=== PATIENT | female | born 1955 | race Caucasian/White ===

== ENCOUNTER 2021-03-20 12:39 | Outpatient (CLI) | payer MEDICARE | END 2021-03-20 12:40 | disposition home or self-care (01) | LOC: CSHCT 12:39 | PROVIDERS: ATTEND Internal Medicine Critical Care Medicine | DX: R91.1 Solitary pulmonary nodule (principal); R59.0 Localized enlarged lymph nodes | CPT/HCPCS: 71260; 82565 ==

== ENCOUNTER 2021-05-18 22:57 | Inpatient (IN) | payer MEDICARE ==
[2021-05-18 23:21] LABS: Hemoglobin 11.9 g/dL (12.0-15.5); Mean Corpuscular HGB CONC 30.2 g/dL (32.0-36.0); Mean Corpuscular Hemoglobin 28.7 pg (27.0-33.0); Mean Corpuscular Volume 95.2 fl (81.6-98.3); Mean Platelet Volume 11.1 fl (7.4-10.4); Platelet Count 162 10x3/uL (150-450); Red Blood Cell (RBC) Count 4.14 10x6/uL (3.90-5.03); White Blood Cell (WBC) Count 5.9 10x3/uL (3.5-10.5)
[2021-05-18 23:24] LABS: MDiff Complete? YES; Manual Diff?? YES
[2021-05-18] MEDS ORDERED: cefTRIAXone\\ROCEPHIN 1 GM VIAL ONE (23:24)
[2021-05-18 23:33] LABS: ALT (SGPT) 18 U/L (8-55); AST (SGOT) 27 U/L (5-34); Albumin 3.3 g/dL (3.4-4.8); Alkaline Phosphatase 39 U/L (40-110); Anion Gap 13 mmol/L (10-20); BUN (Urea Nitrogen) 21 mg/dL (9.8-20.1); Bilirubin, Total 0.6 mg/dL (0.2-1.2); Calc. Creatinine Clearance 0 mL/min (70-130); Calcium 7.4 mg/dL (7.8-10.44); Carbon Dioxide 28 mmol/L (23-31); Chloride 101 mmol/L (98-107); Globulin 2.5 g/dL (2.4-3.5); Glucose 116 mg/dL (80-115); Potassium 4.3 mmol/L (3.5-5.1); Protein, Total 5.8 g/dL (5.8-8.1); Sodium 138 mmol/L (136-145)
[2021-05-18 23:54] LABS: Band 7 % (5-11); Lymphocytes 15 % (21-51); Monocytes 7 % (0-10); Neutrophil 65 % (42-75); Reactive Lymphocytes 5 % (0-10)
[2021-05-18 23:55] LABS: Anisocytosis SLIGHT = 6-15 cells (100X) (0-5/hpf); Platelet Morphology Comment Appears Adequate
[2021-05-18 23:56] LABS: Elliptocytes SLIGHT = 2-5 cells (100X) (0-1/hpf)
[2021-05-19 00:26] LABS: SARS-CoV-2 NAA Rapid Test DETECTED (NotDetected)
[2021-05-19] MEDS ORDERED: Azithromycin 500 MG VIAL ONE (00:34)
[2021-05-19] MEDS ORDERED: Dexamethasone 10 MG/ML VIAL ONE (00:34)
[2021-05-19] MEDS ORDERED: Rocuronium Bromide 10 MG/ML (10ML VIAL) ONE (01:36)
[2021-05-19] MEDS ORDERED: Propofol 1,000 MG/100 ML VIAL IV ONE ×2 (01:51→03:24)
[2021-05-19] MEDS ORDERED: Midazolam HCl 2 mg/2 ml Vial ONE (02:29)
[2021-05-19 03:37] LABS: Troponin I Less than 0.010 ng/mL (< 0.028)
[2021-05-19 03:46] LABS: ALV-art Gradient 572.325 mmHg (0-20); Actual Bicarbonate (HCO3a) 25.3 mEq/L (22-28); Base Excess (BEa) -2.4 mEq/L (-2.0 to +3.0); CO2 Tension 55.9 mmHg (35.0-45.0); Calcium, Ionized (arterial) 1.05 mmol/L (1.12-1.30); Carboxyhemoglobin (COHb) 0.5 gm% (0.0-3.0); Hemoglobin (Hb) 13.5 g/dL (12.0-16.0); O2 Tension (PaO2), arterial 70.8 mmHg (> 80.0); Potassium - ABG Lab 4.8 mmol/L (3.70-5.30); Puncture Site RRA; pH, Arterial 7.27 (7.35-7.45)
[2021-05-19] MEDS ORDERED: Furosemide 40 MG/4 ML VIAL SLOW IVP SCH (05:00)
[2021-05-19] MEDS ORDERED: Fentanyl 100 MCG/2 ML VIAL SLOW IVP PRN (05:26)
[2021-05-19] MEDS ORDERED: Lorazepam 2 MG/ML VIAL SLOW IVP PRN (05:30)
[2021-05-19] MEDS ORDERED: Morphine 2 MG/ML VIAL SLOW IVP PRN (05:30)
[2021-05-19] MEDS ORDERED: DISCONTINUE PREVIOUS NARCOTIC PAIN MEDICATIONS AND BENZODIAZEPINES FS SCH (05:30)
[2021-05-19] MEDS ORDERED: Fentanyl BOLUS 250 ML IVPB PRN (05:30)
[2021-05-19 06:14] LABS: #Monocytes 0.2 10x3/uL (0.0-1.1); #Neutrophils 3.1 10x3/uL (1.5-8.4); %Basophils 0.3 % (0.0-2.0); %Lymphocytes 12.4 % (18.0-47.0); %Monocytes 4.3 % (0.0-10.0); %Neutrophils 82.7 % (40.0-75.0); Hemoglobin 11.9 g/dL (12.0-15.5); Mean Corpuscular HGB CONC 30.4 g/dL (32.0-36.0); Mean Corpuscular Hemoglobin 28.6 pg (27.0-33.0); Mean Platelet Volume 10.9 fl (7.4-10.4); Platelet Count 148 10x3/uL (150-450); RBC Distribution Width 14.9 % (11.5-14.5); Red Blood Cell (RBC) Count 4.16 10x6/uL (3.90-5.03); White Blood Cell (WBC) Count 3.7 10x3/uL (3.5-10.5)
[2021-05-19 06:18] LABS: Anion Gap 16 mmol/L (10-20); BUN (Urea Nitrogen) 22 mg/dL (9.8-20.1); Calc. Creatinine Clearance 78 mL/min (70-130); Calcium 7.7 mg/dL (7.8-10.44); Carbon Dioxide 21 mmol/L (23-31); Chloride 105 mmol/L (98-107); Glucose 141 mg/dL (80-115); Potassium 5.4 mmol/L (3.5-5.1); Sodium 137 mmol/L (136-145)
[2021-05-19 06:24] LABS: Troponin I Less than 0.010 ng/mL (< 0.028)
[2021-05-19 07:20] LABS: CO2 Tension 45.8 mmHg (35.0-45.0); Calcium, Ionized (arterial) 1.07 mmol/L (1.12-1.30); Hemoglobin (Hb) 13.4 g/dL (12.0-16.0); O2 Tension (PaO2), arterial 82.6 mmHg (> 80.0); Potassium - ABG Lab 5.2 mmol/L (3.70-5.30); Puncture Site LRA; pH, Arterial 7.34 (7.35-7.45)
[2021-05-19] MEDS: Pantoprazole 40 MG VIAL IVP SCH (07:45)
[2021-05-19] MEDS: Albuterol Sulfate 2.5 mg/3 ml Neb NEB SCH ×3 (08:26→21:13)
[2021-05-19] MEDS: Budesonide 0.5 MG/2 ML NEB NEB SCH ×2 (08:28→21:13)
[2021-05-19] MEDS ORDERED: Enoxaparin Sodium 40 MG/0.4 ML SYRINGE SC SCH (09:00)
[2021-05-19] MEDS ORDERED: Dexamethasone 4 mg/ml Vial SLOW IVP SCH (09:00)
[2021-05-19] MEDS ORDERED: Enoxaparin Sodium 80 MG/0.8 ML SYRINGE SC SCH (10:45)
[2021-05-19] MEDS: methylPREDNISolone Sod Succ/PF 125 MG/2 ML VIAL IVP SCH ×2 (10:55→21:53)
[2021-05-19] MEDS: Propofol 1,000 MG/100 ML VIAL IV PRN ×3 (10:56→19:38)
[2021-05-19] MEDS: Propofol BOLUS 1,000 MG/100 ML VIAL IV PRN ×2 (12:00→19:38)
[2021-05-19] MEDS ORDERED: Vecuronium 10 MG VIAL ONE (12:10)
[2021-05-19 13:03] LABS: Actual Bicarbonate (HCO3a) 20.9 mEq/L (22-28); Base Excess (BEa) -5.9 mEq/L (-2.0 to +3.0); CO2 Tension 45.7 mmHg (35.0-45.0); Calcium, Ionized (arterial) 1.07 mmol/L (1.12-1.30); Carboxyhemoglobin (COHb) 0.3 gm% (0.0-3.0); Hemoglobin (Hb) 13.8 g/dL (12.0-16.0); O2 Tension (PaO2), arterial 319.8 mmHg (> 80.0); Potassium - ABG Lab 4.1 mmol/L (3.70-5.30); Puncture Site LRA; pH, Arterial 7.28 (7.35-7.45)
[2021-05-19 13:04] LABS: ALV-art Gradient 336.075 mmHg (0-20)
[2021-05-19] MEDS ORDERED: Vecuronium 10 MG VIAL IVP SCH (13:30)
[2021-05-19] MEDS ORDERED: Tocilizumab 800 MG in Sodium Chloride 0.9% 100 ML IV SCH (15:00)
[2021-05-19 16:34] LABS: Anion Gap 20 mmol/L (10-20); BUN (Urea Nitrogen) 28 mg/dL (9.8-20.1); Calc. Creatinine Clearance 64 mL/min (70-130); Calcium 8.2 mg/dL (7.8-10.44); Carbon Dioxide 21 mmol/L (23-31); Chloride 101 mmol/L (98-107); Glucose 221 mg/dL (80-115); Potassium 4.4 mmol/L (3.5-5.1); Sodium 138 mmol/L (136-145)
[2021-05-19] MEDS: fentaNYL Citrate-0.9 % NaCl/PF 100 ML IVPB SCH (18:14)
[2021-05-19] MEDS ORDERED: FLU VACC QS2021-22(6MOS UP)/PF 60 MCG/0.5 ML SYRINGE IM ONE (21:15)
[2021-05-19] MEDS: Enoxaparin Sodium 120 MG/0.8 ML SYRINGE SC SCH (21:53)
[2021-05-20] MEDS: cefTRIAXone\\ROCEPHIN 2 GM in Sodium Chloride 0.9% 100 ML IVPB SCH (00:05)
[2021-05-20] MEDS: Propofol BOLUS 1,000 MG/100 ML VIAL IV PRN ×2 (00:40→04:00)
[2021-05-20] MEDS: Propofol 1,000 MG/100 ML VIAL IV PRN ×6 (00:40→21:42)
[2021-05-20] MEDS: Azithromycin 500 MG in Sodium Chloride 0.9% 250 ML 250 ML IVPB SCH (01:37)
[2021-05-20] MEDS: Albuterol Sulfate 2.5 mg/3 ml Neb NEB SCH ×4 (03:13→19:08)
[2021-05-20 04:08] LABS: ALT (SGPT) 23 U/L (8-55); AST (SGOT) 67 U/L (5-34); Albumin 3.2 g/dL (3.4-4.8); Alkaline Phosphatase 38 U/L (40-110); Anion Gap 16 mmol/L (10-20); BUN (Urea Nitrogen) 34 mg/dL (9.8-20.1); Bilirubin, Total 0.3 mg/dL (0.2-1.2); Calc. Creatinine Clearance 61 mL/min (70-130); Calcium 8.2 mg/dL (7.8-10.44); Carbon Dioxide 21 mmol/L (23-31); Chloride 103 mmol/L (98-107); Globulin 3.2 g/dL (2.4-3.5); Glucose 201 mg/dL (80-115); Potassium 4.1 mmol/L (3.5-5.1); Protein, Total 6.4 g/dL (5.8-8.1); Sodium 136 mmol/L (136-145)
[2021-05-20 06:10] LABS: #Monocytes 0.5 10x3/uL (0.0-1.1); #Neutrophils 4.5 10x3/uL (1.5-8.4); %Basophils 0.2 % (0.0-2.0); %Lymphocytes 11.5 % (18.0-47.0); %Monocytes 9.2 % (0.0-10.0); %Neutrophils 78.7 % (40.0-75.0); Hemoglobin 13.3 g/dL (12.0-15.5); Mean Corpuscular HGB CONC 31.9 g/dL (32.0-36.0); Mean Corpuscular Hemoglobin 28.6 pg (27.0-33.0); Mean Corpuscular Volume 89.7 fl (81.6-98.3); Mean Platelet Volume 10.9 fl (7.4-10.4); Platelet Count 172 10x3/uL (150-450); RBC Distribution Width 14.5 % (11.5-14.5); Red Blood Cell (RBC) Count 4.65 10x6/uL (3.90-5.03); White Blood Cell (WBC) Count 5.7 10x3/uL (3.5-10.5)
[2021-05-20] MEDS: Budesonide 0.5 MG/2 ML NEB NEB SCH ×2 (08:00→19:08)
[2021-05-20 08:04] LABS: Actual Bicarbonate (HCO3a) 21.8 mEq/L (22-28); Base Excess (BEa) -2.2 mEq/L (-2.0 to +3.0); Calcium, Ionized (arterial) 1.08 mmol/L (1.12-1.30); Carboxyhemoglobin (COHb) 0.3 gm% (0.0-3.0); Hemoglobin (Hb) 13.5 g/dL (12.0-16.0); O2 Tension (PaO2), arterial 72.1 mmHg (> 80.0); Potassium - ABG Lab 3.7 mmol/L (3.70-5.30); Puncture Site LRA; pH, Arterial 7.41 (7.35-7.45)
[2021-05-20] MEDS ORDERED: Enoxaparin Sodium 120 MG/0.8 ML SYRINGE SC ONE (08:14)
[2021-05-20] MEDS: Pantoprazole 40 MG VIAL IVP SCH (08:29)
[2021-05-20] MEDS: Enoxaparin Sodium 120 MG/0.8 ML SYRINGE SC SCH ×2 (08:30→21:16)
[2021-05-20] MEDS: methylPREDNISolone Sod Succ/PF 125 MG/2 ML VIAL IVP SCH ×2 (09:38→21:20)
[2021-05-20] MEDS: Norepinephrine 8 MG/0.9% NS 250 ML ONE ×2 (09:57→11:55)
[2021-05-20] MEDS: Norepinephrine 8 MG/0.9% NS 250 ML IVPB SCH (09:57)
[2021-05-20] MEDS ORDERED: Sodium Chloride 0.9% 250 ML 250 ML IVPB SCH (10:45)
[2021-05-20] MEDS ORDERED: Lactated Ringer's 1,000 ML IV SCH (10:45)
[2021-05-20] MEDS ORDERED: Artificial Tear Sol 15 ML BOT EA EYE PRN (12:06)
[2021-05-20] MEDS ORDERED: Loperamide HCl 2 MG CAP PO PRN (12:06)
[2021-05-20] MEDS ORDERED: Acetaminophen 650 MG Suppository PR PRN (12:06)
[2021-05-20] MEDS ORDERED: Hydrocerin (Eucerin) Cream 120 gm Jar TOP PRN (12:06)
[2021-05-20] MEDS ORDERED: GUAIFENESIN SF SOLN 200 MG/10 ML UDCUP PO PRN (12:06)
[2021-05-20] MEDS ORDERED: Bisacodyl 5 MG TAB PO PRN (12:06)
[2021-05-20] MEDS ORDERED: Ondansetron PF 4 MG/2 ML Vial IVP PRN (12:06)
[2021-05-20] MEDS ORDERED: Loratadine 10 MG TAB PO PRN (12:06)
[2021-05-20] MEDS: fentaNYL Citrate-0.9 % NaCl/PF 100 ML IVPB SCH (13:53)
[2021-05-20] MEDS ORDERED: Vecuronium Bromide 20 MG VIAL IV PRN (16:15)
[2021-05-20] MEDS: Vecuronium 10 MG VIAL IV PRN ×2 (17:07→21:15)
[2021-05-21] MEDS ORDERED: Azithromycin 500 MG VIAL ONE (00:02)
[2021-05-21] MEDS: cefTRIAXone\\ROCEPHIN 2 GM in Sodium Chloride 0.9% 100 ML IVPB SCH ×2 (00:20→23:51)
[2021-05-21] MEDS: Azithromycin 500 MG in Sodium Chloride 0.9% 250 ML 250 ML IVPB SCH (01:00)
[2021-05-21] MEDS: Propofol 1,000 MG/100 ML VIAL IV PRN ×5 (01:48→20:21)
[2021-05-21] MEDS: Albuterol Sulfate 2.5 mg/3 ml Neb NEB SCH ×4 (01:55→20:39)
[2021-05-21] MEDS: Vecuronium 10 MG VIAL IV PRN ×3 (02:36→16:10)
[2021-05-21 05:22] LABS: #Basophils 0.1 10x3/uL (0.0-0.2); #Neutrophils 16.6 10x3/uL (1.5-8.4); %Basophils 0.3 % (0.0-2.0); %Monocytes 5.1 % (0.0-10.0); %Neutrophils 89.1 % (40.0-75.0); Hemoglobin 13.7 g/dL (12.0-15.5); Mean Corpuscular HGB CONC 32.9 g/dL (32.0-36.0); Mean Corpuscular Hemoglobin 29.3 pg (27.0-33.0); Mean Corpuscular Volume 89.1 fl (81.6-98.3); Mean Platelet Volume 12.3 fl (7.4-10.4); Platelet Count 227 10x3/uL (150-450); RBC Distribution Width 14.9 % (11.5-14.5); Red Blood Cell (RBC) Count 4.68 10x6/uL (3.90-5.03); White Blood Cell (WBC) Count 18.7 10x3/uL (3.5-10.5)
[2021-05-21 07:10] LABS: ALT (SGPT) 26 U/L (8-55); AST (SGOT) 63 U/L (5-34); Albumin 3.3 g/dL (3.4-4.8); Alkaline Phosphatase 44 U/L (40-110); Anion Gap 18 mmol/L (10-20); BUN (Urea Nitrogen) 43 mg/dL (9.8-20.1); Bilirubin, Total 0.3 mg/dL (0.2-1.2); Calc. Creatinine Clearance 46 mL/min (70-130); Carbon Dioxide 20 mmol/L (23-31); Chloride 102 mmol/L (98-107); Glucose 226 mg/dL (80-115); Potassium 4.1 mmol/L (3.5-5.1); Protein, Total 6.3 g/dL (5.8-8.1); Sodium 136 mmol/L (136-145)
[2021-05-21] MEDS: Budesonide 0.5 MG/2 ML NEB NEB SCH ×2 (07:10→20:39)
[2021-05-21] MEDS: methylPREDNISolone Sod Succ/PF 125 MG/2 ML VIAL IVP SCH ×2 (08:49→20:21)
[2021-05-21] MEDS: Pantoprazole 40 MG VIAL IVP SCH (08:50)
[2021-05-21] MEDS: Norepinephrine 8 MG/0.9% NS 250 ML IVPB SCH (08:50)
[2021-05-21] MEDS ORDERED: Enoxaparin Sodium 120 MG/0.8 ML SYRINGE SC SCH (09:00)
[2021-05-21] MEDS: fentaNYL Citrate-0.9 % NaCl/PF 100 ML IVPB SCH ×2 (10:09→23:21)
[2021-05-21 10:35] LABS: Base Excess (BEa) -1.4 mEq/L (-2.0 to +3.0); CO2 Tension 37.4 mmHg (35.0-45.0); Calcium, Ionized (arterial) 1.06 mmol/L (1.12-1.30); Carboxyhemoglobin (COHb) 0.3 gm% (0.0-3.0); Hemoglobin (Hb) 13.6 g/dL (12.0-16.0); O2 Tension (PaO2), arterial 157.2 mmHg (> 80.0); Potassium - ABG Lab 4.3 mmol/L (3.70-5.30); Puncture Site LRA; pH, Arterial 7.41 (7.35-7.45)
[2021-05-21] MEDS: Sodium Chloride 0.9% 1,000 ML IV SCH (13:39)
[2021-05-21] MEDS: Atorvastatin Calcium 40 MG TAB PO SCH (20:21)
[2021-05-22] MEDS: Propofol 1,000 MG/100 ML VIAL IV PRN ×5 (00:49→17:48)
[2021-05-22] MEDS: Azithromycin 500 MG in Sodium Chloride 0.9% 250 ML 250 ML IVPB SCH (01:00)
[2021-05-22] MEDS: Albuterol Sulfate 2.5 mg/3 ml Neb NEB SCH ×2 (01:25→09:44)
[2021-05-22] MEDS: Sodium Chloride 0.9% 1,000 ML IV SCH ×2 (02:30→17:48)
[2021-05-22 04:03] LABS: #Monocytes 0.7 10x3/uL (0.0-1.1); #Neutrophils 15.4 10x3/uL (1.5-8.4); %Basophils 0.1 % (0.0-2.0); %Lymphocytes 3.8 % (18.0-47.0); %Monocytes 4.4 % (0.0-10.0); %Neutrophils 90.6 % (40.0-75.0); Hemoglobin 11.4 g/dL (12.0-15.5); Mean Corpuscular HGB CONC 31.6 g/dL (32.0-36.0); Mean Corpuscular Hemoglobin 28.7 pg (27.0-33.0); Mean Corpuscular Volume 90.9 fl (81.6-98.3); Mean Platelet Volume 11.6 fl (7.4-10.4); Platelet Count 237 10x3/uL (150-450); RBC Distribution Width 15.3 % (11.5-14.5); Red Blood Cell (RBC) Count 3.97 10x6/uL (3.90-5.03)
[2021-05-22 04:16] LABS: CRP (Inflammatory) 1.37 mg/dL (= or < 0.5); Phosphorus 5.3 mg/dL (2.3-4.7)
[2021-05-22 04:17] LABS: Anion Gap 14 mmol/L (10-20); BUN (Urea Nitrogen) 53 mg/dL (9.8-20.1); Calc. Creatinine Clearance 46 mL/min (70-130); Calcium 7.6 mg/dL (7.8-10.44); Carbon Dioxide 23 mmol/L (23-31); Chloride 103 mmol/L (98-107); Glucose 210 mg/dL (80-115); Magnesium 2.1 mg/dL (1.6-2.6); Potassium 4.9 mmol/L (3.5-5.1); Sodium 135 mmol/L (136-145)
[2021-05-22] MEDS: Levothyroxine Sodium 50 MCG TAB PO SCH (05:46)
[2021-05-22] MEDS ORDERED: Furosemide 40 MG/4 ML VIAL SLOW IVP SCH (07:45)
[2021-05-22] MEDS: Pantoprazole 40 MG VIAL IVP SCH (08:30)
[2021-05-22] MEDS: Enoxaparin Sodium 40 MG/0.4 ML SYRINGE SC SCH ×2 (08:30→20:24)
[2021-05-22] MEDS: methylPREDNISolone Sod Succ/PF 125 MG/2 ML VIAL IVP SCH ×2 (08:30→20:24)
[2021-05-22] MEDS: Aspirin 81 mg Enteric Coated Tablet PO SCH (08:30)
[2021-05-22 08:38] LABS: Actual Bicarbonate (HCO3a) 21.7 mEq/L (22-28); Base Excess (BEa) -2.9 mEq/L (-2.0 to +3.0); CO2 Tension 37.1 mmHg (35.0-45.0); Calcium, Ionized (arterial) 1.02 mmol/L (1.12-1.30); Carboxyhemoglobin (COHb) 0.3 gm% (0.0-3.0); Hemoglobin (Hb) 11.9 g/dL (12.0-16.0); O2 Tension (PaO2), arterial 134.2 mmHg (> 80.0); Potassium - ABG Lab 5.5 mmol/L (3.70-5.30); Puncture Site LRA; pH, Arterial 7.39 (7.35-7.45)
[2021-05-22 08:43] LABS: ALV-art Gradient 175.925 mmHg (0-20)
[2021-05-22] MEDS: Budesonide 0.5 MG/2 ML NEB NEB SCH ×2 (09:19→19:15)
[2021-05-22] MEDS: fentaNYL Citrate-0.9 % NaCl/PF 100 ML IVPB SCH ×2 (10:47→23:08)
[2021-05-22] MEDS: Atorvastatin Calcium 40 MG TAB PO SCH (20:24)
[2021-05-22] MEDS: Norepinephrine 8 MG/0.9% NS 250 ML IVPB SCH (23:08)
[2021-05-23] MEDS: cefTRIAXone\\ROCEPHIN 2 GM in Sodium Chloride 0.9% 100 ML IVPB SCH ×2 (01:08→23:36)
[2021-05-23] MEDS: Azithromycin 500 MG in Sodium Chloride 0.9% 250 ML 250 ML IVPB SCH (01:08)
[2021-05-23] MEDS: Propofol 1,000 MG/100 ML VIAL IV PRN ×4 (03:09→20:13)
[2021-05-23 03:42] LABS: #Basophils 0.1 10x3/uL (0.0-0.2); #Neutrophils 15.1 10x3/uL (1.5-8.4); %Basophils 0.3 % (0.0-2.0); %Lymphocytes 5.8 % (18.0-47.0); %Monocytes 5.4 % (0.0-10.0); %Neutrophils 86.4 % (40.0-75.0); Mean Corpuscular HGB CONC 31.6 g/dL (32.0-36.0); Mean Corpuscular Hemoglobin 29.2 pg (27.0-33.0); Mean Corpuscular Volume 92.3 fl (81.6-98.3); Mean Platelet Volume 11.6 fl (7.4-10.4); Platelet Count 223 10x3/uL (150-450); RBC Distribution Width 15.7 % (11.5-14.5); Red Blood Cell (RBC) Count 3.77 10x6/uL (3.90-5.03); White Blood Cell (WBC) Count 17.5 10x3/uL (3.5-10.5)
[2021-05-23 03:52] LABS: Anion Gap 16 mmol/L (10-20); BUN (Urea Nitrogen) 63 mg/dL (9.8-20.1); Calc. Creatinine Clearance 52 mL/min (70-130); Calcium 7.3 mg/dL (7.8-10.44); Carbon Dioxide 21 mmol/L (23-31); Chloride 108 mmol/L (98-107); Glucose 214 mg/dL (80-115); Potassium 5.6 mmol/L (3.5-5.1); Sodium 139 mmol/L (136-145)
[2021-05-23 04:21] LABS: Actual Bicarbonate (HCO3a) 23.7 mEq/L (22-28); Base Excess (BEa) -2.6 mEq/L (-2.0 to +3.0); CO2 Tension 47.2 mmHg (35.0-45.0); Calcium, Ionized (arterial) 1.04 mmol/L (1.12-1.30); Carboxyhemoglobin (COHb) 0.3 gm% (0.0-3.0); O2 Tension (PaO2), arterial 54.4 mmHg (> 80.0); Potassium - ABG Lab 5.3 mmol/L (3.70-5.30); Puncture Site LRA; pH, Arterial 7.32 (7.35-7.45)
[2021-05-23] MEDS: Budesonide 0.5 MG/2 ML NEB NEB SCH ×2 (07:06→19:25)
[2021-05-23] MEDS: Levothyroxine Sodium 50 MCG TAB PO SCH (07:50)
[2021-05-23] MEDS: Sodium Chloride 0.9% 1,000 ML IV SCH ×2 (07:50→18:12)
[2021-05-23] MEDS: Aspirin 81 mg Enteric Coated Tablet PO SCH (07:51)
[2021-05-23] MEDS: Pantoprazole 40 MG VIAL IVP SCH (07:54)
[2021-05-23] MEDS: Enoxaparin Sodium 40 MG/0.4 ML SYRINGE SC SCH ×2 (07:54→20:09)
[2021-05-23] MEDS: methylPREDNISolone Sod Succ 40 MG VIAL IVP SCH ×2 (07:55→20:09)
[2021-05-23] MEDS: fentaNYL Citrate-0.9 % NaCl/PF 100 ML IVPB SCH (15:28)
[2021-05-23 15:52] LABS: Potassium 5.6 mmol/L (3.5-5.1)
[2021-05-23] MEDS: Atorvastatin Calcium 40 MG TAB PO SCH (20:09)
[2021-05-24] MEDS: Propofol 1,000 MG/100 ML VIAL IV PRN ×5 (00:16→20:32)
[2021-05-24 04:01] LABS: Actual Bicarbonate (HCO3a) 25.1 mEq/L (22-28); Base Excess (BEa) -0.8 mEq/L (-2.0 to +3.0); CO2 Tension 46.9 mmHg (35.0-45.0); Calcium, Ionized (arterial) 1.07 mmol/L (1.12-1.30); Carboxyhemoglobin (COHb) 0.3 gm% (0.0-3.0); Hemoglobin (Hb) 10.7 g/dL (12.0-16.0); O2 Tension (PaO2), arterial 48.5 mmHg (> 80.0); Potassium - ABG Lab 5.2 mmol/L (3.70-5.30); Puncture Site LRA; pH, Arterial 7.35 (7.35-7.45)
[2021-05-24 04:03] LABS: ALV-art Gradient 249.375 mmHg (0-20)
[2021-05-24 04:34] LABS: #Basophils 0.1 10x3/uL (0.0-0.2); #Monocytes 1.2 10x3/uL (0.0-1.1); #Neutrophils 12.8 10x3/uL (1.5-8.4); %Basophils 0.4 % (0.0-2.0); %Monocytes 7.7 % (0.0-10.0); %Neutrophils 81.8 % (40.0-75.0); Hemoglobin 10.1 g/dL (12.0-15.5); Mean Corpuscular HGB CONC 31.5 g/dL (32.0-36.0); Mean Corpuscular Hemoglobin 28.9 pg (27.0-33.0); Mean Platelet Volume 11.5 fl (7.4-10.4); Platelet Count 223 10x3/uL (150-450); RBC Distribution Width 15.9 % (11.5-14.5); Red Blood Cell (RBC) Count 3.49 10x6/uL (3.90-5.03); White Blood Cell (WBC) Count 15.7 10x3/uL (3.5-10.5)
[2021-05-24 04:46] LABS: Anion Gap 13 mmol/L (10-20); BUN (Urea Nitrogen) 67 mg/dL (9.8-20.1); Calc. Creatinine Clearance 64 mL/min (70-130); Calcium 7.4 mg/dL (7.8-10.44); Carbon Dioxide 24 mmol/L (23-31); Chloride 111 mmol/L (98-107); Glucose 234 mg/dL (80-115); Potassium 5.4 mmol/L (3.5-5.1); Sodium 143 mmol/L (136-145)
[2021-05-24] MEDS: Levothyroxine Sodium 50 MCG TAB PO SCH (05:42)
[2021-05-24] MEDS: fentaNYL Citrate-0.9 % NaCl/PF 100 ML IVPB SCH (06:22)
[2021-05-24] MEDS: Enoxaparin Sodium 40 MG/0.4 ML SYRINGE SC SCH ×2 (07:29→20:26)
[2021-05-24] MEDS: methylPREDNISolone Sod Succ 40 MG VIAL IVP SCH ×2 (07:29→20:26)
[2021-05-24] MEDS: Pantoprazole 40 MG VIAL IVP SCH (07:32)
[2021-05-24] MEDS: Aspirin 81 mg Enteric Coated Tablet PO SCH (07:37)
[2021-05-24] MEDS: Budesonide 0.5 MG/2 ML NEB NEB SCH ×2 (07:42→19:20)
[2021-05-24] MEDS: Sodium Chloride 0.9% 1,000 ML IV SCH ×2 (08:43→20:26)
[2021-05-24] MEDS: Atorvastatin Calcium 40 MG TAB PO SCH (20:26)
[2021-05-25] MEDS: fentaNYL Citrate-0.9 % NaCl/PF 100 ML IVPB SCH ×2 (00:54→16:38)
[2021-05-25] MEDS: cefTRIAXone\\ROCEPHIN 2 GM in Sodium Chloride 0.9% 100 ML IVPB SCH (00:54)
[2021-05-25] MEDS: Propofol 1,000 MG/100 ML VIAL IV PRN ×6 (00:55→21:15)
[2021-05-25 04:12] LABS: Hemoglobin 10.6 g/dL (12.0-15.5); Mean Corpuscular HGB CONC 31.1 g/dL (32.0-36.0); Mean Corpuscular Hemoglobin 28.7 pg (27.0-33.0); Mean Corpuscular Volume 92.4 fl (81.6-98.3); Mean Platelet Volume 11.6 fl (7.4-10.4); Platelet Count 243 10x3/uL (150-450); RBC Distribution Width 16.4 % (11.5-14.5); Red Blood Cell (RBC) Count 3.69 10x6/uL (3.90-5.03); White Blood Cell (WBC) Count 11.6 10x3/uL (3.5-10.5)
[2021-05-25 04:29] LABS: Anion Gap 15 mmol/L (10-20); BUN (Urea Nitrogen) 62 mg/dL (9.8-20.1); Calc. Creatinine Clearance 110 mL/min (70-130); Calcium 7.7 mg/dL (7.8-10.44); Carbon Dioxide 23 mmol/L (23-31); Chloride 113 mmol/L (98-107); Glucose 129 mg/dL (80-115); Potassium 4.6 mmol/L (3.5-5.1); Sodium 146 mmol/L (136-145)
[2021-05-25] MEDS: Levothyroxine Sodium 50 MCG TAB PO SCH (05:56)
[2021-05-25 06:13] LABS: MDiff Complete? YES
[2021-05-25 06:16] LABS: Band 6 % (5-11); Eosinophils 1 % (0-10); Lymphocytes 11 % (21-51); Monocytes 7 % (0-10); Neutrophil 70 % (42-75); Nucleated RBC 8 % (0); Reactive Lymphocytes 5 % (0-10)
[2021-05-25 06:19] LABS: Platelet Morphology Comment Appears Adequate
[2021-05-25] MEDS: Budesonide 0.5 MG/2 ML NEB NEB SCH ×2 (07:14→20:26)
[2021-05-25] MEDS: methylPREDNISolone Sod Succ 40 MG VIAL IVP SCH ×2 (08:55→21:15)
[2021-05-25] MEDS: Aspirin Chewable 81 MG TAB PO SCH (08:55)
[2021-05-25] MEDS: Enoxaparin Sodium 40 MG/0.4 ML SYRINGE SC SCH ×2 (08:55→21:15)
[2021-05-25] MEDS: Pantoprazole 40 MG VIAL IVP SCH (08:56)
[2021-05-25 10:31] LABS: Actual Bicarbonate (HCO3a) 22.3 mEq/L (22-28); Base Excess (BEa) -1.3 mEq/L (-2.0 to +3.0); CO2 Tension 33.6 mmHg (35.0-45.0); Calcium, Ionized (arterial) 1.12 mmol/L (1.12-1.30); Carboxyhemoglobin (COHb) 0.3 gm% (0.0-3.0); Hemoglobin (Hb) 11.7 g/dL (12.0-16.0); O2 Tension (PaO2), arterial 53.4 mmHg (> 80.0); Potassium - ABG Lab 4.5 mmol/L (3.70-5.30); Puncture Site LRA; pH, Arterial 7.44 (7.35-7.45)
[2021-05-25] MEDS: Sodium Chloride 0.9% 1,000 ML IV SCH (10:37)
[2021-05-25] MEDS: Atorvastatin Calcium 40 MG TAB PO SCH (21:15)
[2021-05-26] MEDS: cefTRIAXone\\ROCEPHIN 2 GM in Sodium Chloride 0.9% 100 ML IVPB SCH (00:22)
[2021-05-26] MEDS: Propofol 1,000 MG/100 ML VIAL IV PRN ×4 (00:23→23:58)
[2021-05-26] MEDS: Senokot S 8.6-50 MG TAB PO PRN (04:24)
[2021-05-26] MEDS: Levothyroxine Sodium 50 MCG TAB PO SCH (04:24)
[2021-05-26 04:25] LABS: Hemoglobin 10.2 g/dL (12.0-15.5); Mean Corpuscular HGB CONC 32.5 g/dL (32.0-36.0); Mean Corpuscular Hemoglobin 29.7 pg (27.0-33.0); Mean Corpuscular Volume 91.5 fl (81.6-98.3); Mean Platelet Volume 11.5 fl (7.4-10.4); Platelet Count 215 10x3/uL (150-450); RBC Distribution Width 16.8 % (11.5-14.5); Red Blood Cell (RBC) Count 3.43 10x6/uL (3.90-5.03); White Blood Cell (WBC) Count 12.2 10x3/uL (3.5-10.5)
[2021-05-26] MEDS: fentaNYL Citrate-0.9 % NaCl/PF 100 ML IVPB SCH ×2 (04:26→23:57)
[2021-05-26 04:40] LABS: Anion Gap 13 mmol/L (10-20); BUN (Urea Nitrogen) 58 mg/dL (9.8-20.1); Calc. Creatinine Clearance 113 mL/min (70-130); Calcium 7.8 mg/dL (7.8-10.44); Carbon Dioxide 22 mmol/L (23-31); Chloride 116 mmol/L (98-107); Glucose 179 mg/dL (80-115); Potassium 5.1 mmol/L (3.5-5.1); Sodium 146 mmol/L (136-145)
[2021-05-26 05:07] LABS: MDiff Complete? YES
[2021-05-26 05:17] LABS: Band 6 % (5-11); Eosinophils 1 % (0-10); Lymphocytes 6 % (21-51); Monocytes 2 % (0-10); Neutrophil 85 % (42-75); Nucleated RBC 5 % (0)
[2021-05-26 05:19] LABS: Platelet Morphology Comment Appears Adequate; RBC Morphology Normal
[2021-05-26] MEDS: Enoxaparin Sodium 40 MG/0.4 ML SYRINGE SC SCH ×2 (08:23→19:53)
[2021-05-26] MEDS: methylPREDNISolone Sod Succ 40 MG VIAL IVP SCH ×2 (08:23→19:53)
[2021-05-26] MEDS: Pantoprazole 40 MG VIAL IVP SCH (08:23)
[2021-05-26] MEDS: Aspirin Chewable 81 MG TAB PO SCH (08:23)
[2021-05-26 08:31] LABS: ALV-art Gradient 218.525 mmHg (0-20); Actual Bicarbonate (HCO3a) 22.9 mEq/L (22-28); Base Excess (BEa) -0.2 mEq/L (-2.0 to +3.0); CO2 Tension 32.1 mmHg (35.0-45.0); Calcium, Ionized (arterial) 1.14 mmol/L (1.12-1.30); Carboxyhemoglobin (COHb) 0.3 gm% (0.0-3.0); Hemoglobin (Hb) 10.8 g/dL (12.0-16.0); O2 Tension (PaO2), arterial 62.2 mmHg (> 80.0); Potassium - ABG Lab 4.5 mmol/L (3.70-5.30); Puncture Site LRA; pH, Arterial 7.47 (7.35-7.45)
[2021-05-26] MEDS: Budesonide 0.5 MG/2 ML NEB NEB SCH ×2 (08:52→20:15)
[2021-05-26] MEDS ORDERED: Furosemide 40 MG/4 ML VIAL SLOW IVP SCH (10:15)
[2021-05-26] MEDS: Atorvastatin Calcium 40 MG TAB PO SCH (19:53)
[2021-05-27 04:07] LABS: Anion Gap 14 mmol/L (10-20); BUN (Urea Nitrogen) 63 mg/dL (9.8-20.1); Calc. Creatinine Clearance 113 mL/min (70-130); Calcium 8.1 mg/dL (7.8-10.44); Carbon Dioxide 24 mmol/L (23-31); Chloride 114 mmol/L (98-107); Glucose 174 mg/dL (80-115); Sodium 147 mmol/L (136-145)
[2021-05-27 04:34] LABS: Lymphocytes 6 % (21-51); Monocytes 7 % (0-10); Nucleated RBC 2 % (0)
[2021-05-27 04:35] LABS: Anisocytosis SLIGHT = 6-15 cells (100X) (0-5/hpf); MDiff Complete? YES; Neutrophil 87 % (42-75); Ovalocytes SLIGHT = 2-5 cells (100X) (0-1/hpf); Poikilocytosis SLIGHT = 6-15 cells (100X) (0-5/hpf); Schistocytes SLIGHT = 2-5 cells (100X) (0-1/hpf)
[2021-05-27 04:36] LABS: Hemoglobin 10.1 g/dL (12.0-15.5); Mean Corpuscular HGB CONC 31.4 g/dL (32.0-36.0); Mean Corpuscular Hemoglobin 29.2 pg (27.0-33.0); Mean Corpuscular Volume 93.1 fl (81.6-98.3); Mean Platelet Volume 11.5 fl (7.4-10.4); Platelet Count 189 10x3/uL (150-450); Platelet Morphology Comment Appears Adequate; RBC Distribution Width 17.4 % (11.5-14.5); Red Blood Cell (RBC) Count 3.46 10x6/uL (3.90-5.03)
[2021-05-27] MEDS: Propofol 1,000 MG/100 ML VIAL IV PRN ×3 (04:48→23:51)
[2021-05-27] MEDS: Levothyroxine Sodium 50 MCG TAB PO SCH (05:23)
[2021-05-27] MEDS: Budesonide 0.5 MG/2 ML NEB NEB SCH ×2 (07:00→19:55)
[2021-05-27] MEDS: methylPREDNISolone Sod Succ 40 MG VIAL IVP SCH ×2 (08:21→19:50)
[2021-05-27] MEDS: Aspirin Chewable 81 MG TAB PO SCH (08:21)
[2021-05-27] MEDS: Pantoprazole 40 MG VIAL IVP SCH (08:21)
[2021-05-27] MEDS: Enoxaparin Sodium 40 MG/0.4 ML SYRINGE SC SCH ×2 (08:21→19:50)
[2021-05-27 10:00] LABS: Actual Bicarbonate (HCO3a) 22.4 mEq/L (22-28); Base Excess (BEa) -3.3 mEq/L (-2.0 to +3.0); CO2 Tension 43.1 mmHg (35.0-45.0); Calcium, Ionized (arterial) 1.19 mmol/L (1.12-1.30); Hemoglobin (Hb) 11.9 g/dL (12.0-16.0); O2 Tension (PaO2), arterial 64.8 mmHg (> 80.0); Potassium - ABG Lab 4.6 mmol/L (3.70-5.30); Puncture Site LRA; pH, Arterial 7.33 (7.35-7.45)
[2021-05-27 10:04] LABS: ALV-art Gradient 202.175 mmHg (0-20)
[2021-05-27] MEDS: fentaNYL Citrate-0.9 % NaCl/PF 100 ML IVPB SCH (18:13)
[2021-05-27] MEDS: Atorvastatin Calcium 40 MG TAB PO SCH (19:50)
[2021-05-27] MEDS ORDERED: Methylnaltrexone 12 MG/0.6 ML VIAL SC SCH (22:00)
[2021-05-27] MEDS ORDERED: Methylnaltrexone 12 MG/0.6 ML VIAL SC PRN (22:23)
[2021-05-28 03:53] LABS: Hemoglobin 9.4 g/dL (12.0-15.5); Mean Corpuscular HGB CONC 31.2 g/dL (32.0-36.0); Mean Corpuscular Hemoglobin 29.3 pg (27.0-33.0); Mean Corpuscular Volume 93.8 fl (81.6-98.3); Mean Platelet Volume 11.4 fl (7.4-10.4); Platelet Count 175 10x3/uL (150-450); RBC Distribution Width 17.3 % (11.5-14.5); Red Blood Cell (RBC) Count 3.21 10x6/uL (3.90-5.03); White Blood Cell (WBC) Count 13.3 10x3/uL (3.5-10.5)
[2021-05-28 04:06] LABS: Anion Gap 12 mmol/L (10-20); BUN (Urea Nitrogen) 62 mg/dL (9.8-20.1); Calc. Creatinine Clearance 105 mL/min (70-130); Carbon Dioxide 26 mmol/L (23-31); Chloride 115 mmol/L (98-107); Glucose 170 mg/dL (80-115); Potassium 4.6 mmol/L (3.5-5.1); Sodium 148 mmol/L (136-145)
[2021-05-28 04:19] LABS: MDiff Complete? YES
[2021-05-28 04:21] LABS: Band 5 % (5-11); Lymphocytes 3 % (21-51); Monocytes 3 % (0-10); Neutrophil 89 % (42-75)
[2021-05-28 04:22] LABS: Ovalocytes SLIGHT = 2-5 cells (100X) (0-1/hpf); Platelet Morphology Comment Appears Adequate
[2021-05-28] MEDS: Propofol 1,000 MG/100 ML VIAL IV PRN ×4 (05:25→23:31)
[2021-05-28] MEDS: Levothyroxine Sodium 50 MCG TAB PO SCH (06:44)
[2021-05-28] MEDS: Budesonide 0.5 MG/2 ML NEB NEB SCH ×2 (07:28→19:00)
[2021-05-28] MEDS: Polyethylene Glycol 3350 17 GM Packet PER TUBE SCH (08:48)
[2021-05-28] MEDS: Enoxaparin Sodium 40 MG/0.4 ML SYRINGE SC SCH ×2 (08:48→19:51)
[2021-05-28] MEDS: Pantoprazole 40 MG VIAL IVP SCH (08:48)
[2021-05-28] MEDS: Aspirin Chewable 81 MG TAB PO SCH (08:49)
[2021-05-28] MEDS: methylPREDNISolone Sod Succ 40 MG VIAL IVP SCH ×2 (08:49→19:51)
[2021-05-28] MEDS: fentaNYL Citrate-0.9 % NaCl/PF 100 ML IVPB SCH (09:02)
[2021-05-28 10:59] LABS: Actual Bicarbonate (HCO3a) 25.6 mEq/L (22-28); Base Excess (BEa) -0.8 mEq/L (-2.0 to +3.0); CO2 Tension 50.2 mmHg (35.0-45.0); Calcium, Ionized (arterial) 1.17 mmol/L (1.12-1.30); Carboxyhemoglobin (COHb) 0.1 gm% (0.0-3.0); O2 Tension (PaO2), arterial 62.6 mmHg (> 80.0); Potassium - ABG Lab 4.5 mmol/L (3.70-5.30); Puncture Site RRA; pH, Arterial 7.33 (7.35-7.45)
[2021-05-28] MEDS: Senokot S 8.6-50 MG TAB PO PRN (15:05)
[2021-05-28] MEDS: Atorvastatin Calcium 40 MG TAB PO SCH (19:51)
[2021-05-29 03:38] LABS: #Monocytes 0.7 10x3/uL (0.0-1.1); #Neutrophils 14.8 10x3/uL (1.5-8.4); %Basophils 0.2 % (0.0-2.0); %Lymphocytes 5.6 % (18.0-47.0); %Monocytes 4.2 % (0.0-10.0); %Neutrophils 89.2 % (40.0-75.0); Hemoglobin 9.9 g/dL (12.0-15.5); Mean Corpuscular HGB CONC 30.3 g/dL (32.0-36.0); Mean Corpuscular Volume 95.9 fl (81.6-98.3); Mean Platelet Volume 11.8 fl (7.4-10.4); Platelet Count 170 10x3/uL (150-450); RBC Distribution Width 17.9 % (11.5-14.5); Red Blood Cell (RBC) Count 3.41 10x6/uL (3.90-5.03); White Blood Cell (WBC) Count 16.6 10x3/uL (3.5-10.5)
[2021-05-29 03:51] LABS: Anion Gap 11 mmol/L (10-20); BUN (Urea Nitrogen) 55 mg/dL (9.8-20.1); Calc. Creatinine Clearance 126 mL/min (70-130); Calcium 8.5 mg/dL (7.8-10.44); Carbon Dioxide 27 mmol/L (23-31); Chloride 114 mmol/L (98-107); Glucose 164 mg/dL (80-115); Potassium 4.9 mmol/L (3.5-5.1); Sodium 147 mmol/L (136-145)
[2021-05-29] MEDS: fentaNYL Citrate-0.9 % NaCl/PF 100 ML IVPB SCH (04:41)
[2021-05-29] MEDS: Propofol 1,000 MG/100 ML VIAL IV PRN ×3 (06:33→23:41)
[2021-05-29] MEDS: Levothyroxine Sodium 50 MCG TAB PO SCH (06:33)
[2021-05-29] MEDS: Budesonide 0.5 MG/2 ML NEB NEB SCH ×2 (07:10→19:15)
[2021-05-29] MEDS: Pantoprazole 40 MG VIAL IVP SCH (08:00)
[2021-05-29] MEDS: Enoxaparin Sodium 40 MG/0.4 ML SYRINGE SC SCH ×2 (08:00→19:35)
[2021-05-29] MEDS: Polyethylene Glycol 3350 17 GM Packet PER TUBE SCH (08:00)
[2021-05-29] MEDS: Aspirin Chewable 81 MG TAB PO SCH (08:00)
[2021-05-29] MEDS: methylPREDNISolone Sod Succ 40 MG VIAL IVP SCH ×2 (08:00→19:35)
[2021-05-29] MEDS: Dexmedetomidine In 0.9 % NaCl 100 ML IVPB SCH ×2 (10:00→18:07)
[2021-05-29] MEDS: Atorvastatin Calcium 40 MG TAB PO SCH (19:35)
[2021-05-30] MEDS: Dexmedetomidine In 0.9 % NaCl 100 ML IVPB SCH ×6 (00:09→20:33)
[2021-05-30 03:35] LABS: #Monocytes 0.8 10x3/uL (0.0-1.1); #Neutrophils 13.3 10x3/uL (1.5-8.4); %Basophils 0.1 % (0.0-2.0); %Lymphocytes 5.6 % (18.0-47.0); %Monocytes 5.3 % (0.0-10.0); %Neutrophils 88.1 % (40.0-75.0); Mean Corpuscular HGB CONC 31.3 g/dL (32.0-36.0); Mean Corpuscular Hemoglobin 29.4 pg (27.0-33.0); Mean Corpuscular Volume 94.1 fl (81.6-98.3); Mean Platelet Volume 11.3 fl (7.4-10.4); Platelet Count 160 10x3/uL (150-450); RBC Distribution Width 18.2 % (11.5-14.5); White Blood Cell (WBC) Count 15.1 10x3/uL (3.5-10.5)
[2021-05-30 03:50] LABS: Anion Gap 13 mmol/L (10-20); BUN (Urea Nitrogen) 49 mg/dL (9.8-20.1); Calc. Creatinine Clearance 165 mL/min (70-130); Calcium 8.2 mg/dL (7.8-10.44); Carbon Dioxide 25 mmol/L (23-31); Chloride 115 mmol/L (98-107); Glucose 186 mg/dL (80-115); Potassium 4.9 mmol/L (3.5-5.1); Sodium 148 mmol/L (136-145)
[2021-05-30] MEDS: Levothyroxine Sodium 50 MCG TAB PO SCH (04:55)
[2021-05-30] MEDS: Budesonide 0.5 MG/2 ML NEB NEB SCH ×2 (07:11→19:15)
[2021-05-30] MEDS: Polyethylene Glycol 3350 17 GM Packet PER TUBE SCH (08:39)
[2021-05-30] MEDS: Aspirin Chewable 81 MG TAB PO SCH (08:39)
[2021-05-30] MEDS: methylPREDNISolone Sod Succ 40 MG VIAL IVP SCH ×2 (08:39→20:01)
[2021-05-30] MEDS: Pantoprazole 40 MG VIAL IVP SCH (08:39)
[2021-05-30] MEDS: Enoxaparin Sodium 40 MG/0.4 ML SYRINGE SC SCH ×2 (08:39→20:02)
[2021-05-30] MEDS: fentaNYL 50 mcg/hour Patch TD SCH (08:47)
[2021-05-30 11:06] LABS: Actual Bicarbonate (HCO3a) 23.7 mEq/L (22-28); Base Excess (BEa) -2.4 mEq/L (-2.0 to +3.0); CO2 Tension 46.8 mmHg (35.0-45.0); Calcium, Ionized (arterial) 1.15 mmol/L (1.12-1.30); Carboxyhemoglobin (COHb) 0.2 gm% (0.0-3.0); Hemoglobin (Hb) 10.7 g/dL (12.0-16.0); O2 Tension (PaO2), arterial 67.3 mmHg (> 80.0); Puncture Site RRA; pH, Arterial 7.32 (7.35-7.45)
[2021-05-30] MEDS ORDERED: Piperacillin/Tazobactam 3.375 GM in Sodium Chloride 0.9% 100 ML IVPB SCH ×2 (12:30→13:30)
[2021-05-30] MEDS: Vancomycin 1.5 GRAM/300 ML BAG 1.5 GM in Premix Bag 1 BAG IVPB SCH (13:58)
[2021-05-30] MEDS: fentaNYL Citrate-0.9 % NaCl/PF 100 ML IVPB SCH (17:25)
[2021-05-30] MEDS: Piperacillin/Tazobactam 3.375 GM in Sodium Chloride 0.9% 100 ML IVPB SCH (17:25)
[2021-05-30] MEDS: Atorvastatin Calcium 40 MG TAB PO SCH (20:01)
[2021-05-30] MEDS: Midazolam HCl 2 mg/2 ml Vial SLOW IVP PRN ×2 (20:46→22:30)
[2021-05-30] MEDS ORDERED: Methylnaltrexone 12 MG/0.6 ML VIAL SC PRN (22:33)
[2021-05-30] MEDS ORDERED: Morphine 4 MG/ML VIAL SLOW IVP PRN (23:30)
[2021-05-31] MEDS: Dexmedetomidine In 0.9 % NaCl 100 ML IVPB SCH ×5 (00:14→21:30)
[2021-05-31] MEDS: Propofol 1,000 MG/100 ML VIAL IV PRN ×2 (00:55→21:30)
[2021-05-31] MEDS: Piperacillin/Tazobactam 3.375 GM in Sodium Chloride 0.9% 100 ML IVPB SCH ×2 (01:50→08:55)
[2021-05-31] MEDS: Vancomycin 1.5 GRAM/300 ML BAG 1.5 GM in Premix Bag 1 BAG IVPB SCH ×2 (01:51→14:21)
[2021-05-31 05:09] LABS: Hemoglobin 8.9 g/dL (12.0-15.5); Mean Corpuscular Hemoglobin 29.5 pg (27.0-33.0); Mean Corpuscular Volume 98.3 fl (81.6-98.3); Mean Platelet Volume 12.6 fl (7.4-10.4); Platelet Count 136 10x3/uL (150-450); RBC Distribution Width 18.3 % (11.5-14.5); Red Blood Cell (RBC) Count 3.02 10x6/uL (3.90-5.03); White Blood Cell (WBC) Count 19.5 10x3/uL (3.5-10.5)
[2021-05-31 05:24] LABS: Anion Gap 11 mmol/L (10-20); BUN (Urea Nitrogen) 53 mg/dL (9.8-20.1); Calc. Creatinine Clearance 156 mL/min (70-130); Calcium 7.6 mg/dL (7.8-10.44); Carbon Dioxide 23 mmol/L (23-31); Chloride 117 mmol/L (98-107); Glucose 194 mg/dL (80-115); Potassium 5.1 mmol/L (3.5-5.1); Sodium 146 mmol/L (136-145)
[2021-05-31] MEDS: Levothyroxine Sodium 50 MCG TAB PO SCH (06:06)
[2021-05-31 06:29] LABS: MDiff Complete? YES
[2021-05-31 06:34] LABS: Band 5 % (5-11); Lymphocytes 8 % (21-51); Monocytes 2 % (0-10); Neutrophil 85 % (42-75)
[2021-05-31 06:35] LABS: Elliptocytes SLIGHT = 2-5 cells (100X) (0-1/hpf); Hypochromia SLIGHT = 6-15 cells (100X) (0-5/hpf); Platelet Morphology Comment Appears Adequate
[2021-05-31 07:26] LABS: Actual Bicarbonate (HCO3a) 19.6 mEq/L (22-28); Base Excess (BEa) -6.2 mEq/L (-2.0 to +3.0); CO2 Tension 39.8 mmHg (35.0-45.0); Calcium, Ionized (arterial) 1.17 mmol/L (1.12-1.30); Carboxyhemoglobin (COHb) 0.1 gm% (0.0-3.0); Hemoglobin (Hb) 11.1 g/dL (12.0-16.0); O2 Tension (PaO2), arterial 74.7 mmHg (> 80.0); Potassium - ABG Lab 4.5 mmol/L (3.70-5.30); Puncture Site LRA; pH, Arterial 7.31 (7.35-7.45)
[2021-05-31] MEDS: Budesonide 0.5 MG/2 ML NEB NEB SCH ×2 (07:34→19:40)
[2021-05-31] MEDS: Norepinephrine 8 MG/0.9% NS 250 ML IVPB SCH (07:55)
[2021-05-31] MEDS ORDERED: Furosemide 40 MG/4 ML VIAL SLOW IVP SCH (08:15)
[2021-05-31] MEDS ORDERED: Norepinephrine 8 MG/0.9% NS 250 ML IVPB SCH (08:15)
[2021-05-31] MEDS: methylPREDNISolone Sod Succ 40 MG VIAL IVP SCH ×2 (08:56→21:30)
[2021-05-31] MEDS: Aspirin Chewable 81 MG TAB PO SCH (08:56)
[2021-05-31] MEDS: Enoxaparin Sodium 40 MG/0.4 ML SYRINGE SC SCH ×2 (08:56→21:30)
[2021-05-31] MEDS: Polyethylene Glycol 3350 17 GM Packet PER TUBE SCH (08:57)
[2021-05-31] MEDS: Pantoprazole 40 MG VIAL IVP SCH (08:57)
[2021-05-31] MEDS: Atorvastatin Calcium 40 MG TAB PO SCH (21:52)
[2021-06-01 01:26] LABS: Vancomycin, Trough 23.1 ug/mL
[2021-06-01] MEDS: Dexmedetomidine In 0.9 % NaCl 100 ML IVPB SCH ×5 (03:10→19:09)
[2021-06-01 04:38] LABS: Anion Gap 11 mmol/L (10-20); BUN (Urea Nitrogen) 55 mg/dL (9.8-20.1); Calc. Creatinine Clearance 156 mL/min (70-130); Calcium 7.8 mg/dL (7.8-10.44); Carbon Dioxide 23 mmol/L (23-31); Chloride 115 mmol/L (98-107); Glucose 239 mg/dL (80-115); Potassium 4.4 mmol/L (3.5-5.1); Sodium 145 mmol/L (136-145)
[2021-06-01 04:39] LABS: Hemoglobin 9.1 g/dL (12.0-15.5); Mean Corpuscular HGB CONC 31.4 g/dL (32.0-36.0); Mean Corpuscular Volume 95.7 fl (81.6-98.3); Mean Platelet Volume 13.1 fl (7.4-10.4); Platelet Count 115 10x3/uL (150-450); RBC Distribution Width 18.6 % (11.5-14.5); Red Blood Cell (RBC) Count 3.03 10x6/uL (3.90-5.03)
[2021-06-01 05:47] LABS: MDiff Complete? YES
[2021-06-01 05:49] LABS: Platelet Morphology Comment PLT clumps seen-LOW
[2021-06-01] MEDS: Levothyroxine Sodium 50 MCG TAB PO SCH (05:49)
[2021-06-01 05:55] LABS: Elliptocytes SLIGHT = 2-5 cells (100X) (0-1/hpf)
[2021-06-01 05:56] LABS: Platelet Clumps SLIGHT
[2021-06-01 05:58] LABS: Band 10 % (5-11); Lymphocytes 2 % (21-51); Monocytes 3 % (0-10); Neutrophil 85 % (42-75)
[2021-06-01] MEDS: fentaNYL Citrate-0.9 % NaCl/PF 100 ML IVPB SCH (08:15)
[2021-06-01] MEDS: methylPREDNISolone Sod Succ 40 MG VIAL IVP SCH (08:47)
[2021-06-01] MEDS: Enoxaparin Sodium 40 MG/0.4 ML SYRINGE SC SCH ×2 (08:47→21:39)
[2021-06-01] MEDS: Pantoprazole 40 MG VIAL IVP SCH (08:47)
[2021-06-01] MEDS: Aspirin Chewable 81 MG TAB PO SCH (08:47)
[2021-06-01] MEDS: Polyethylene Glycol 3350 17 GM Packet PER TUBE SCH (08:47)
[2021-06-01 08:56] LABS: CO2 Tension 35.8 mmHg (35.0-45.0); Calcium, Ionized (arterial) 1.15 mmol/L (1.12-1.30); Carboxyhemoglobin (COHb) 0.4 gm% (0.0-3.0); Hemoglobin (Hb) 10.3 g/dL (12.0-16.0); O2 Tension (PaO2), arterial 68.2 mmHg (> 80.0); Potassium - ABG Lab 4.3 mmol/L (3.70-5.30); Puncture Site RRA; pH, Arterial 7.43 (7.35-7.45)
[2021-06-01] MEDS: Budesonide 0.5 MG/2 ML NEB NEB SCH ×2 (09:08→19:20)
[2021-06-01] MEDS ORDERED: Dextrose 50% Abboject 50 ML SYRINGE SLOW IVP PRN (09:42)
[2021-06-01] MEDS ORDERED: Dextrose 5% in Water 1,000 ML IV PRN (09:42)
[2021-06-01 11:31] LABS: Vancomycin, Random 13.7 ug/mL (See Comment)
[2021-06-01] MEDS: VANCOMYCIN 1.75 GM/350 ML BAG 1.75 GM in Premix Bag 1 BAG IVPB SCH (12:52)
[2021-06-01] MEDS: HumaLOG 300 UNITS/3 ML VIAL SC PRN ×2 (13:10→16:31)
[2021-06-01 17:04] LABS: Glucose 198 mg/dL (80-115)
[2021-06-01 17:43] LABS: Glucose 164 mg/dL (80-115)
[2021-06-01] MEDS: Atorvastatin Calcium 40 MG TAB PO SCH (21:39)
[2021-06-02] MEDS: HumaLOG 300 UNITS/3 ML VIAL SC PRN ×4 (00:35→18:02)
[2021-06-02] MEDS: Dexmedetomidine In 0.9 % NaCl 100 ML IVPB SCH ×6 (00:55→22:34)
[2021-06-02 04:15] LABS: Mean Corpuscular HGB CONC 30.2 g/dL (32.0-36.0); Mean Corpuscular Hemoglobin 29.7 pg (27.0-33.0); Mean Corpuscular Volume 98.5 fl (81.6-98.3); Mean Platelet Volume 12.9 fl (7.4-10.4); Platelet Count 120 10x3/uL (150-450); RBC Distribution Width 19.2 % (11.5-14.5); Red Blood Cell (RBC) Count 2.69 10x6/uL (3.90-5.03); White Blood Cell (WBC) Count 7.3 10x3/uL (3.5-10.5)
[2021-06-02 04:21] LABS: ALT (SGPT) 50 U/L (8-55); AST (SGOT) 33 U/L (5-34); Albumin 2.8 g/dL (3.4-4.8); Alkaline Phosphatase 47 U/L (40-110); Anion Gap 9 mmol/L (10-20); BUN (Urea Nitrogen) 52 mg/dL (9.8-20.1); Bilirubin, Total 0.6 mg/dL (0.2-1.2); Calc. Creatinine Clearance 162 mL/min (70-130); Calcium 7.7 mg/dL (7.8-10.44); Carbon Dioxide 25 mmol/L (23-31); Chloride 116 mmol/L (98-107); Globulin 1.8 g/dL (2.4-3.5); Glucose 164 mg/dL (80-115); Magnesium 2.1 mg/dL (1.6-2.6); Protein, Total 4.6 g/dL (5.8-8.1); Sodium 146 mmol/L (136-145)
[2021-06-02] MEDS: Levothyroxine Sodium 50 MCG TAB PO SCH (05:03)
[2021-06-02 05:57] LABS: Hypochromia SLIGHT = 6-15 cells (100X) (0-5/hpf); MDiff Complete? YES; Platelet Morphology Comment Appears Decreased; Polychromasia SLIGHT = 2-3 cells (100X) (0-2/hpf)
[2021-06-02 05:58] LABS: Elliptocytes SLIGHT = 2-5 cells (100X) (0-1/hpf)
[2021-06-02 06:04] LABS: Band 7 % (5-11); Eosinophils 1 % (0-10); Lymphocytes 16 % (21-51); Monocytes 11 % (0-10); Neutrophil 65 % (42-75)
[2021-06-02] MEDS: fentaNYL 50 mcg/hour Patch TD SCH (07:33)
[2021-06-02] MEDS: Budesonide 0.5 MG/2 ML NEB NEB SCH ×2 (07:34→19:30)
[2021-06-02] MEDS: VANCOMYCIN 1.75 GM/350 ML BAG 1.75 GM in Premix Bag 1 BAG IVPB SCH (07:35)
[2021-06-02 08:28] LABS: Actual Bicarbonate (HCO3a) 21.9 mEq/L (22-28); Base Excess (BEa) -3.1 mEq/L (-2.0 to +3.0); CO2 Tension 38.8 mmHg (35.0-45.0); Calcium, Ionized (arterial) 1.15 mmol/L (1.12-1.30); Carboxyhemoglobin (COHb) 0.3 gm% (0.0-3.0); O2 Tension (PaO2), arterial 84.1 mmHg (> 80.0); Potassium - ABG Lab 3.7 mmol/L (3.70-5.30); Puncture Site RRA; pH, Arterial 7.37 (7.35-7.45)
[2021-06-02] MEDS: methylPREDNISolone Sod Succ 40 MG VIAL IVP SCH (09:20)
[2021-06-02] MEDS: Polyethylene Glycol 3350 17 GM Packet PER TUBE SCH (09:20)
[2021-06-02] MEDS: Pantoprazole 40 MG VIAL IVP SCH (09:20)
[2021-06-02] MEDS: Enoxaparin Sodium 40 MG/0.4 ML SYRINGE SC SCH ×2 (09:20→22:02)
[2021-06-02] MEDS: Aspirin Chewable 81 MG TAB PO SCH (09:20)
[2021-06-02] MEDS ORDERED: Labetalol HCl 100 MG/20 ML VIAL SLOW IVP PRN (14:23)
[2021-06-02] MEDS ORDERED: hydrALAZINE 20 MG/ML VIAL SLOW IVP PRN (14:23)
[2021-06-02] MEDS ORDERED: Amlodipine 5 MG TAB PO SCH (14:30)
[2021-06-02] MEDS: Atorvastatin Calcium 40 MG TAB PO SCH (22:01)
[2021-06-03 01:15] LABS: Vancomycin, Trough 17.5 ug/mL
[2021-06-03 03:33] LABS: Mean Corpuscular HGB CONC 30.8 g/dL (32.0-36.0); Mean Corpuscular Hemoglobin 29.9 pg (27.0-33.0); Mean Platelet Volume 12.2 fl (7.4-10.4); Platelet Count 128 10x3/uL (150-450); RBC Distribution Width 19.6 % (11.5-14.5); Red Blood Cell (RBC) Count 2.68 10x6/uL (3.90-5.03)
[2021-06-03 03:50] LABS: ALT (SGPT) 52 U/L (8-55); AST (SGOT) 30 U/L (5-34); Albumin 2.7 g/dL (3.4-4.8); Alkaline Phosphatase 45 U/L (40-110); Anion Gap 11 mmol/L (10-20); BUN (Urea Nitrogen) 50 mg/dL (9.8-20.1); Bilirubin, Total 0.6 mg/dL (0.2-1.2); Calc. Creatinine Clearance 138 mL/min (70-130); Calcium 7.9 mg/dL (7.8-10.44); Carbon Dioxide 23 mmol/L (23-31); Chloride 116 mmol/L (98-107); Glucose 174 mg/dL (80-115); Protein, Total 4.7 g/dL (5.8-8.1); Sodium 146 mmol/L (136-145)
[2021-06-03] MEDS: Dexmedetomidine In 0.9 % NaCl 100 ML IVPB SCH ×2 (03:54→14:47)
[2021-06-03 03:56] LABS: MDiff Complete? YES
[2021-06-03 04:00] LABS: Band 5 % (5-11); Lymphocytes 29 % (21-51); Monocytes 9 % (0-10); Neutrophil 57 % (42-75)
[2021-06-03 04:02] LABS: Elliptocytes SLIGHT = 2-5 cells (100X) (0-1/hpf); Hypochromia MODERATE=16-30 cells (100X) (0-5/hpf); Platelet Morphology Comment Appears Decreased; Polychromasia SLIGHT = 2-3 cells (100X) (0-2/hpf)
[2021-06-03] MEDS: Levothyroxine Sodium 50 MCG TAB PO SCH (05:16)
[2021-06-03] MEDS: VANCOMYCIN 1.75 GM/350 ML BAG 1.75 GM in Premix Bag 1 BAG IVPB SCH ×2 (06:37→07:44)
[2021-06-03] MEDS: Budesonide 0.5 MG/2 ML NEB NEB SCH ×2 (07:01→18:35)
[2021-06-03] MEDS: Enoxaparin Sodium 40 MG/0.4 ML SYRINGE SC SCH ×2 (07:42→20:48)
[2021-06-03] MEDS: Aspirin Chewable 81 MG TAB PO SCH (07:43)
[2021-06-03] MEDS: methylPREDNISolone Sod Succ 40 MG VIAL IVP SCH (07:43)
[2021-06-03] MEDS: Amlodipine 5 MG TAB PO SCH (07:43)
[2021-06-03] MEDS: Pantoprazole 40 MG VIAL IVP SCH (07:43)
[2021-06-03] MEDS: Polyethylene Glycol 3350 17 GM Packet PER TUBE SCH (07:44)
[2021-06-03] MEDS: HumaLOG 300 UNITS/3 ML VIAL SC PRN ×3 (08:24→15:59)
[2021-06-03 08:43] LABS: Base Excess (BEa) -3.3 mEq/L (-2.0 to +3.0); CO2 Tension 40.3 mmHg (35.0-45.0); Calcium, Ionized (arterial) 1.18 mmol/L (1.12-1.30); Carboxyhemoglobin (COHb) 0.9 gm% (0.0-3.0); Hemoglobin (Hb) 8.4 g/dL (12.0-16.0); O2 Tension (PaO2), arterial 69.1 mmHg (> 80.0); Potassium - ABG Lab 3.6 mmol/L (3.70-5.30); Puncture Site RRA; pH, Arterial 7.35 (7.35-7.45)
[2021-06-03 08:45] LABS: ALV-art Gradient 165.725 mmHg (0-20)
[2021-06-03] MEDS: Piperacillin/Tazobactam 3.375 GM in Sodium Chloride 0.9% 100 ML IVPB SCH (10:16)
[2021-06-03] MEDS: Atorvastatin Calcium 40 MG TAB PO SCH (20:48)
[2021-06-04 03:48] LABS: #Eosinphils 0.1 10x3/uL (0.0-0.5); #Monocytes 0.5 10x3/uL (0.0-1.1); %Basophils 0.2 % (0.0-2.0); %Eosinophils 3.2 % (0.0-6.0); %Lymphocytes 38.5 % (18.0-47.0); %Monocytes 11.8 % (0.0-10.0); %Neutrophils 45.8 % (40.0-75.0); Hemoglobin 7.4 g/dL (12.0-15.5); Mean Corpuscular HGB CONC 30.3 g/dL (32.0-36.0); Mean Corpuscular Volume 98.8 fl (81.6-98.3); Mean Platelet Volume 12.1 fl (7.4-10.4); Platelet Count 124 10x3/uL (150-450); RBC Distribution Width 20.3 % (11.5-14.5); Red Blood Cell (RBC) Count 2.47 10x6/uL (3.90-5.03); White Blood Cell (WBC) Count 4.4 10x3/uL (3.5-10.5)
[2021-06-04 04:14] LABS: Anion Gap 11 mmol/L (10-20); BUN (Urea Nitrogen) 42 mg/dL (9.8-20.1); Calc. Creatinine Clearance 146 mL/min (70-130); Calcium 7.9 mg/dL (7.8-10.44); Carbon Dioxide 23 mmol/L (23-31); Chloride 116 mmol/L (98-107); Glucose 145 mg/dL (80-115); Potassium 3.8 mmol/L (3.5-5.1); Sodium 146 mmol/L (136-145)
[2021-06-04] MEDS: Levothyroxine Sodium 50 MCG TAB PO SCH (05:36)
[2021-06-04 07:24] LABS: Potassium - ABG Lab 3.8 mmol/L (3.70-5.30); Puncture Site LRA
[2021-06-04 07:41] LABS: ALV-art Gradient 147.925 mmHg (0-20); Actual Bicarbonate (HCO3a) 26.2 mEq/L (22-28); Base Excess (BEa) 1.9 mEq/L (-2.0 to +3.0); CO2 Tension 39.5 mmHg (35.0-45.0); Calcium, Ionized (arterial) 1.15 mmol/L (1.12-1.30); Hemoglobin (Hb) 8.3 g/dL (12.0-16.0); O2 Tension (PaO2), arterial 87.9 mmHg (> 80.0); pH, Arterial 7.44 (7.35-7.45)
[2021-06-04] MEDS: VANCOMYCIN 1.75 GM/350 ML BAG 1.75 GM in Premix Bag 1 BAG IVPB SCH (07:53)
[2021-06-04] MEDS: Amlodipine 5 MG TAB PO SCH (07:54)
[2021-06-04] MEDS: Polyethylene Glycol 3350 17 GM Packet PER TUBE SCH (07:55)
[2021-06-04] MEDS: Enoxaparin Sodium 40 MG/0.4 ML SYRINGE SC SCH ×2 (07:55→21:10)
[2021-06-04] MEDS: methylPREDNISolone Sod Succ 40 MG VIAL IVP SCH (07:55)
[2021-06-04] MEDS: Aspirin Chewable 81 MG TAB PO SCH (07:56)
[2021-06-04] MEDS: Budesonide 0.5 MG/2 ML NEB NEB SCH ×2 (08:12→19:40)
[2021-06-04] MEDS: Dexmedetomidine In 0.9 % NaCl 100 ML IVPB SCH ×2 (12:08→19:20)
[2021-06-04] MEDS: HumaLOG 300 UNITS/3 ML VIAL SC PRN ×2 (13:10→17:23)
[2021-06-04] MEDS: Atorvastatin Calcium 40 MG TAB PO SCH (21:10)
[2021-06-05] MEDS: Dexmedetomidine In 0.9 % NaCl 100 ML IVPB SCH ×2 (04:11→17:44)
[2021-06-05 04:26] LABS: Hemoglobin 7.5 g/dL (12.0-15.5); Mean Corpuscular HGB CONC 30.4 g/dL (32.0-36.0); Mean Corpuscular Hemoglobin 30.1 pg (27.0-33.0); Mean Corpuscular Volume 99.2 fl (81.6-98.3); Mean Platelet Volume 12.3 fl (7.4-10.4); Platelet Count 138 10x3/uL (150-450); RBC Distribution Width 21.2 % (11.5-14.5); Red Blood Cell (RBC) Count 2.49 10x6/uL (3.90-5.03); White Blood Cell (WBC) Count 3.8 10x3/uL (3.5-10.5)
[2021-06-05 04:47] LABS: Anion Gap 11 mmol/L (10-20); BUN (Urea Nitrogen) 41 mg/dL (9.8-20.1); Calc. Creatinine Clearance 174 mL/min (70-130); Carbon Dioxide 22 mmol/L (23-31); Chloride 115 mmol/L (98-107); Glucose 127 mg/dL (80-115); Sodium 144 mmol/L (136-145)
[2021-06-05 05:34] LABS: MDiff Complete? YES; Manual Diff?? YES
[2021-06-05 05:44] LABS: Band 12 % (5-11); Eosinophils 7 % (0-10); Lymphocytes 32 % (21-51); Monocytes 6 % (0-10); Neutrophil 41 % (42-75); Nucleated RBC 2 % (0); Reactive Lymphocytes 1 % (0-10)
[2021-06-05 05:45] LABS: Anisocytosis SLIGHT = 6-15 cells (100X) (0-5/hpf); Elliptocytes SLIGHT = 2-5 cells (100X) (0-1/hpf); Hypochromia SLIGHT = 6-15 cells (100X) (0-5/hpf); Macrocytosis SLIGHT = 6-15 cells (100X) (0-5/hpf); Microcytosis SLIGHT = 6-15 cells (100X) (0-5/hpf); Platelet Morphology Comment Appears Adequate; Polychromasia SLIGHT = 2-3 cells (100X) (0-2/hpf)
[2021-06-05] MEDS: Levothyroxine Sodium 50 MCG TAB PO SCH (06:38)
[2021-06-05 06:52] LABS: Vancomycin, Trough 14.9 ug/mL
[2021-06-05] MEDS: Budesonide 0.5 MG/2 ML NEB NEB SCH ×2 (08:50→19:11)
[2021-06-05] MEDS ORDERED: Bupivacaine 0.25% HCL 30 ML VIAL ONE (08:51)
[2021-06-05] MEDS ORDERED: EPINEPHrine 1 MG/ML AMP ONE (08:51)
[2021-06-05] MEDS ORDERED: Fentanyl 250 MCG/5 ML VIAL ONE (08:56)
[2021-06-05] MEDS: VANCOMYCIN 1.75 GM/350 ML BAG 1.75 GM in Premix Bag 1 BAG IVPB SCH (08:56)
[2021-06-05] MEDS ORDERED: Rocuronium Bromide 10 MG/ML (10ML VIAL) ONE (08:57)
[2021-06-05] MEDS: methylPREDNISolone Sod Succ 40 MG VIAL IVP SCH (08:57)
[2021-06-05] MEDS ORDERED: Midazolam HCl 2 mg/2 ml Vial ONE (08:57)
[2021-06-05] MEDS ORDERED: PROPOFOL 20 ML ONE (09:03)
[2021-06-05] MEDS ORDERED: HYDROmorphone 0.5 MG/0.5 ML SYRINGE ONE (09:08)
[2021-06-05] MEDS ORDERED: Lidocaine 1% PF 5 ML VIAL ONE (10:05)
[2021-06-05] MEDS: Amlodipine 5 MG TAB PO SCH (11:19)
[2021-06-05] MEDS: Aspirin Chewable 81 MG TAB PO SCH (11:20)
[2021-06-05] MEDS: Polyethylene Glycol 3350 17 GM Packet PER TUBE SCH (11:21)
[2021-06-05] MEDS: fentaNYL 50 mcg/hour Patch TD SCH (12:52)
[2021-06-05] MEDS: Atorvastatin Calcium 40 MG TAB PO SCH (22:13)
[2021-06-06 03:24] LABS: Mean Corpuscular HGB CONC 30.9 g/dL (32.0-36.0); Mean Corpuscular Hemoglobin 30.7 pg (27.0-33.0); Mean Corpuscular Volume 99.2 fl (81.6-98.3); Mean Platelet Volume 11.6 fl (7.4-10.4); Platelet Count 142 10x3/uL (150-450); RBC Distribution Width 21.4 % (11.5-14.5); Red Blood Cell (RBC) Count 2.61 10x6/uL (3.90-5.03); White Blood Cell (WBC) Count 4.2 10x3/uL (3.5-10.5)
[2021-06-06 05:09] LABS: Anion Gap 11 mmol/L (10-20); BUN (Urea Nitrogen) 32 mg/dL (9.8-20.1); Calc. Creatinine Clearance 168 mL/min (70-130); Calcium 8.2 mg/dL (7.8-10.44); Carbon Dioxide 22 mmol/L (23-31); Chloride 116 mmol/L (98-107); Glucose 107 mg/dL (80-115); Sodium 145 mmol/L (136-145)
[2021-06-06] MEDS: Dexmedetomidine In 0.9 % NaCl 100 ML IVPB SCH ×2 (05:18→09:29)
[2021-06-06] MEDS: Levothyroxine Sodium 50 MCG TAB PO SCH (05:43)
[2021-06-06 05:50] LABS: Manual Diff?? YES
[2021-06-06 05:51] LABS: MDiff Complete? YES
[2021-06-06 07:00] LABS: Band 15 % (5-11); Eosinophils 5 % (0-10); Lymphocytes 31 % (21-51); Metamyelocyte 1 % (0-0); Monocytes 11 % (0-10); Neutrophil 37 % (42-75)
[2021-06-06 07:02] LABS: Platelet Morphology Comment Appears Adequate; Rouleaux Formation SLIGHT = 1-5 cells (100X) (None Seen)
[2021-06-06 07:03] LABS: Anisocytosis SLIGHT = 6-15 cells (100X) (0-5/hpf); Macrocytosis SLIGHT = 6-15 cells (100X) (0-5/hpf); Microcytosis SLIGHT = 6-15 cells (100X) (0-5/hpf)
[2021-06-06 07:04] LABS: Hypochromia SLIGHT = 6-15 cells (100X) (0-5/hpf); Polychromasia SLIGHT = 2-3 cells (100X) (0-2/hpf)
[2021-06-06 07:08] LABS: Elliptocytes SLIGHT = 2-5 cells (100X) (0-1/hpf)
[2021-06-06] MEDS: Budesonide 0.5 MG/2 ML NEB NEB SCH ×2 (07:50→19:35)
[2021-06-06] MEDS: VANCOMYCIN 1.75 GM/350 ML BAG 1.75 GM in Premix Bag 1 BAG IVPB SCH (08:16)
[2021-06-06] MEDS: methylPREDNISolone Sod Succ 40 MG VIAL IVP SCH (09:26)
[2021-06-06] MEDS: Amlodipine 5 MG TAB PO SCH (09:26)
[2021-06-06] MEDS: Aspirin Chewable 81 MG TAB PO SCH (09:26)
[2021-06-06] MEDS: Polyethylene Glycol 3350 17 GM Packet PER TUBE SCH (09:28)
[2021-06-06] MEDS: Pantoprazole 40 MG GRANULES PACKET PER TUBE SCH (10:07)
[2021-06-06] MEDS: HumaLOG 300 UNITS/3 ML VIAL SC PRN (17:12)
[2021-06-06] MEDS: Atorvastatin Calcium 40 MG TAB PO SCH (21:22)
[2021-06-06] MEDS: Enoxaparin Sodium 40 MG/0.4 ML SYRINGE SC SCH (21:23)
[2021-06-07 04:14] LABS: Hemoglobin 7.5 g/dL (12.0-15.5); Mean Corpuscular HGB CONC 30.9 g/dL (32.0-36.0); Mean Corpuscular Hemoglobin 30.9 pg (27.0-33.0); Mean Platelet Volume 11.8 fl (7.4-10.4); Platelet Count 144 10x3/uL (150-450); RBC Distribution Width 21.5 % (11.5-14.5); Red Blood Cell (RBC) Count 2.43 10x6/uL (3.90-5.03); White Blood Cell (WBC) Count 3.5 10x3/uL (3.5-10.5)
[2021-06-07 04:16] LABS: Anion Gap 12 mmol/L (10-20); BUN (Urea Nitrogen) 31 mg/dL (9.8-20.1); Calc. Creatinine Clearance 168 mL/min (70-130); Calcium 8.1 mg/dL (7.8-10.44); Carbon Dioxide 21 mmol/L (23-31); Chloride 114 mmol/L (98-107); Glucose 123 mg/dL (80-115); Potassium 3.7 mmol/L (3.5-5.1); Sodium 143 mmol/L (136-145)
[2021-06-07] MEDS: Dexmedetomidine In 0.9 % NaCl 100 ML IVPB SCH (05:40)
[2021-06-07] MEDS: Levothyroxine Sodium 50 MCG TAB PO SCH (05:42)
[2021-06-07 05:56] LABS: MDiff Complete? YES
[2021-06-07 06:17] LABS: Band 3 % (5-11); Eosinophils 2 % (0-10); Lymphocytes 35 % (21-51); Monocytes 11 % (0-10); Neutrophil 49 % (42-75)
[2021-06-07 06:35] LABS: Vancomycin, Trough 16.3 ug/mL
[2021-06-07] MEDS: Budesonide 0.5 MG/2 ML NEB NEB SCH ×2 (07:20→18:50)
[2021-06-07 08:13] LABS: Base Excess (BEa) -0.1 mEq/L (-2.0 to +3.0); CO2 Tension 36.2 mmHg (35.0-45.0); Calcium, Ionized (arterial) 1.19 mmol/L (1.12-1.30); Carboxyhemoglobin (COHb) 1.1 gm% (0.0-3.0); Hemoglobin (Hb) 8.1 g/dL (12.0-16.0); O2 Tension (PaO2), arterial 115.6 mmHg (> 80.0); Potassium - ABG Lab 3.8 mmol/L (3.70-5.30); Puncture Site RRA; pH, Arterial 7.44 (7.35-7.45)
[2021-06-07] MEDS ORDERED: DC Sedation Protocol FS ONE (08:34)
[2021-06-07] MEDS: VANCOMYCIN 1.75 GM/350 ML BAG 1.75 GM in Premix Bag 1 BAG IVPB SCH (08:57)
[2021-06-07] MEDS: Amlodipine 5 MG TAB PO SCH (09:00)
[2021-06-07] MEDS: Aspirin Chewable 81 MG TAB PO SCH (09:02)
[2021-06-07] MEDS: Pantoprazole 40 MG GRANULES PACKET PER TUBE SCH (09:02)
[2021-06-07] MEDS: Polyethylene Glycol 3350 17 GM Packet PER TUBE SCH (09:03)
[2021-06-07] MEDS: Enoxaparin Sodium 40 MG/0.4 ML SYRINGE SC SCH ×2 (09:03→20:54)
[2021-06-07] MEDS: Atorvastatin Calcium 40 MG TAB PO SCH (20:54)
[2021-06-08 04:32] LABS: Hemoglobin 7.6 g/dL (12.0-15.5); Mean Corpuscular HGB CONC 30.4 g/dL (32.0-36.0); Mean Corpuscular Hemoglobin 30.4 pg (27.0-33.0); Mean Platelet Volume 11.7 fl (7.4-10.4); Platelet Count 144 10x3/uL (150-450); RBC Distribution Width 22.5 % (11.5-14.5)
[2021-06-08 04:44] LABS: Anion Gap 13 mmol/L (10-20); BUN (Urea Nitrogen) 31 mg/dL (9.8-20.1); Calc. Creatinine Clearance 188 mL/min (70-130); Carbon Dioxide 20 mmol/L (23-31); Chloride 115 mmol/L (98-107); Glucose 128 mg/dL (80-115); Potassium 3.6 mmol/L (3.5-5.1); Sodium 144 mmol/L (136-145)
[2021-06-08 05:17] LABS: MDiff Complete? YES
[2021-06-08 05:21] LABS: Band 2 % (5-11); Eosinophils 10 % (0-10); Lymphocytes 29 % (21-51); Monocytes 10 % (0-10); Neutrophil 48 % (42-75)
[2021-06-08 05:22] LABS: Anisocytosis SLIGHT = 6-15 cells (100X) (0-5/hpf)
[2021-06-08 05:23] LABS: Platelet Morphology Comment Appears Decreased
[2021-06-08] MEDS: Levothyroxine Sodium 50 MCG TAB PO SCH (05:49)
[2021-06-08] MEDS: Dexmedetomidine In 0.9 % NaCl 100 ML IVPB SCH (05:50)
[2021-06-08] MEDS: Budesonide 0.5 MG/2 ML NEB NEB SCH ×2 (07:10→19:29)
[2021-06-08] MEDS: VANCOMYCIN 1.75 GM/350 ML BAG 1.75 GM in Premix Bag 1 BAG IVPB SCH (07:36)
[2021-06-08] MEDS: fentaNYL 50 mcg/hour Patch TD SCH (09:30)
[2021-06-08] MEDS: Amlodipine 5 MG TAB PO SCH (09:31)
[2021-06-08] MEDS: Polyethylene Glycol 3350 17 GM Packet PER TUBE SCH (09:32)
[2021-06-08] MEDS: Aspirin Chewable 81 MG TAB PO SCH (09:32)
[2021-06-08] MEDS: Enoxaparin Sodium 40 MG/0.4 ML SYRINGE SC SCH ×2 (09:32→21:56)
[2021-06-08] MEDS: Pantoprazole 40 MG GRANULES PACKET PER TUBE SCH (09:32)
[2021-06-08] MEDS: Atorvastatin Calcium 40 MG TAB PO SCH (21:56)
[2021-06-09 05:12] LABS: Hemoglobin 8.2 g/dL (12.0-15.5); Mean Corpuscular HGB CONC 31.2 g/dL (32.0-36.0); Mean Corpuscular Hemoglobin 31.1 pg (27.0-33.0); Mean Corpuscular Volume 99.6 fl (81.6-98.3); Mean Platelet Volume 11.7 fl (7.4-10.4); Platelet Count 160 10x3/uL (150-450); RBC Distribution Width 22.7 % (11.5-14.5); Red Blood Cell (RBC) Count 2.64 10x6/uL (3.90-5.03); White Blood Cell (WBC) Count 4.4 10x3/uL (3.5-10.5)
[2021-06-09 05:21] LABS: Anion Gap 12 mmol/L (10-20); BUN (Urea Nitrogen) 29 mg/dL (9.8-20.1); Calc. Creatinine Clearance 186 mL/min (70-130); Calcium 8.1 mg/dL (7.8-10.44); Carbon Dioxide 20 mmol/L (23-31); Chloride 116 mmol/L (98-107); Glucose 134 mg/dL (80-115); Iron 61 ug/dL (50-170); Iron Binding Capacity, Total 238 mcg/dL (265-497); Potassium 3.4 mmol/L (3.5-5.1); Sodium 145 mmol/L (136-145)
[2021-06-09 05:22] LABS: Iron 62 ug/dL (50-170); Iron Binding Capacity, Total 236 mcg/dL (265-497)
[2021-06-09] MEDS: Levothyroxine Sodium 50 MCG TAB PO SCH (06:06)
[2021-06-09 06:21] LABS: MDiff Complete? YES
[2021-06-09 06:25] LABS: Band 4 % (5-11); Eosinophils 7 % (0-10); Lymphocytes 20 % (21-51); Monocytes 8 % (0-10); Neutrophil 57 % (42-75); Nucleated RBC 1 % (0); Reactive Lymphocytes 4 % (0-10)
[2021-06-09 06:27] LABS: Platelet Morphology Comment Appears Adequate; RBC Morphology Normal
[2021-06-09 07:03] LABS: Vancomycin, Trough 16.4 ug/mL
[2021-06-09] MEDS: Budesonide 0.5 MG/2 ML NEB NEB SCH ×2 (07:18→18:44)
[2021-06-09] MEDS: Aspirin Chewable 81 MG TAB PO SCH (08:39)
[2021-06-09] MEDS: Enoxaparin Sodium 40 MG/0.4 ML SYRINGE SC SCH ×2 (08:39→21:57)
[2021-06-09] MEDS: Pantoprazole 40 MG GRANULES PACKET PER TUBE SCH (08:39)
[2021-06-09] MEDS: Polyethylene Glycol 3350 17 GM Packet PER TUBE SCH (08:40)
[2021-06-09] MEDS: VANCOMYCIN 1.75 GM/350 ML BAG 1.75 GM in Premix Bag 1 BAG IVPB SCH (09:17)
[2021-06-09] MEDS ORDERED: Potassium Bicarbonate/Cit Ac 20 MEQ TAB PER TUBE SCH (18:30)
[2021-06-09] MEDS ORDERED: Potassium Bicarbonate/Cit Ac 20 MEQ TAB PO SCH (18:30)
[2021-06-09] MEDS: Atorvastatin Calcium 40 MG TAB PO SCH (21:57)
[2021-06-10 04:58] LABS: Hemoglobin 8.1 g/dL (12.0-15.5); Mean Corpuscular HGB CONC 30.8 g/dL (32.0-36.0); Mean Corpuscular Hemoglobin 31.5 pg (27.0-33.0); Mean Corpuscular Volume 102.3 fl (81.6-98.3); Mean Platelet Volume 11.4 fl (7.4-10.4); Platelet Count 136 10x3/uL (150-450); RBC Distribution Width 22.9 % (11.5-14.5); Red Blood Cell (RBC) Count 2.57 10x6/uL (3.90-5.03); White Blood Cell (WBC) Count 4.5 10x3/uL (3.5-10.5)
[2021-06-10 05:07] LABS: Anion Gap 12 mmol/L (10-20); BUN (Urea Nitrogen) 25 mg/dL (9.8-20.1); Calc. Creatinine Clearance 193 mL/min (70-130); Calcium 8.1 mg/dL (7.8-10.44); Carbon Dioxide 21 mmol/L (23-31); Chloride 117 mmol/L (98-107); Glucose 133 mg/dL (80-115); Potassium 4.3 mmol/L (3.5-5.1); Sodium 146 mmol/L (136-145)
[2021-06-10 06:37] LABS: MDiff Complete? YES
[2021-06-10 06:57] LABS: Band 10 % (5-11); Eosinophils 10 % (0-10); Lymphocytes 29 % (21-51); Monocytes 10 % (0-10); Neutrophil 41 % (42-75)
[2021-06-10 06:58] LABS: Platelet Morphology Comment Appears Decreased
[2021-06-10] MEDS: Budesonide 0.5 MG/2 ML NEB NEB SCH ×2 (07:15→17:25)
[2021-06-10] MEDS: Pantoprazole 40 MG GRANULES PACKET PER TUBE SCH (08:33)
[2021-06-10] MEDS: VANCOMYCIN 1.75 GM/350 ML BAG 1.75 GM in Premix Bag 1 BAG IVPB SCH (08:35)
[2021-06-10] MEDS: Aspirin Chewable 81 MG TAB PO SCH (08:35)
[2021-06-10] MEDS: Enoxaparin Sodium 40 MG/0.4 ML SYRINGE SC SCH ×2 (08:35→20:40)
[2021-06-10] MEDS: Polyethylene Glycol 3350 17 GM Packet PER TUBE SCH (08:36)
[2021-06-10] MEDS: HYDROcodone/Acetaminophen 5/325 mg Tablet PO PRN (15:09)
[2021-06-10] MEDS: Atorvastatin Calcium 40 MG TAB PO SCH (20:40)
[2021-06-11 04:25] LABS: Hemoglobin 8.1 g/dL (12.0-15.5); Mean Corpuscular HGB CONC 30.1 g/dL (32.0-36.0); Mean Corpuscular Hemoglobin 30.9 pg (27.0-33.0); Mean Corpuscular Volume 102.7 fl (81.6-98.3); Mean Platelet Volume 11.1 fl (7.4-10.4); Platelet Count 147 10x3/uL (150-450); RBC Distribution Width 23.2 % (11.5-14.5); Red Blood Cell (RBC) Count 2.62 10x6/uL (3.90-5.03); White Blood Cell (WBC) Count 4.6 10x3/uL (3.5-10.5)
[2021-06-11 04:45] LABS: Anion Gap 11 mmol/L (10-20); BUN (Urea Nitrogen) 24 mg/dL (9.8-20.1); Calc. Creatinine Clearance 209 mL/min (70-130); Carbon Dioxide 21 mmol/L (23-31); Chloride 118 mmol/L (98-107); Glucose 141 mg/dL (80-115); Potassium 4.4 mmol/L (3.5-5.1); Sodium 146 mmol/L (136-145)
[2021-06-11 04:50] LABS: MDiff Complete? YES
[2021-06-11 04:54] LABS: Band 17 % (5-11); Eosinophils 17 % (0-10); Lymphocytes 18 % (21-51); Monocytes 7 % (0-10); Neutrophil 41 % (42-75)
[2021-06-11 04:55] LABS: Anisocytosis SLIGHT = 6-15 cells (100X) (0-5/hpf); Ovalocytes SLIGHT = 2-5 cells (100X) (0-1/hpf); Platelet Morphology Comment Appears Adequate; Polychromasia SLIGHT = 2-3 cells (100X) (0-2/hpf)
[2021-06-11] MEDS: Budesonide 0.5 MG/2 ML NEB NEB SCH ×2 (07:21→18:50)
[2021-06-11] MEDS: Aspirin Chewable 81 MG TAB PO SCH (08:20)
[2021-06-11] MEDS: Pantoprazole 40 MG GRANULES PACKET PER TUBE SCH (08:20)
[2021-06-11] MEDS: Enoxaparin Sodium 40 MG/0.4 ML SYRINGE SC SCH ×2 (08:20→20:56)
[2021-06-11] MEDS: fentaNYL 50 mcg/hour Patch TD SCH (09:32)
[2021-06-11] MEDS: Polyethylene Glycol 3350 17 GM Packet PER TUBE SCH (09:34)
[2021-06-11 09:59] LABS: Vancomycin, Trough 15.3 ug/mL
[2021-06-11] MEDS: VANCOMYCIN 1.75 GM/350 ML BAG 1.75 GM in Premix Bag 1 BAG IVPB SCH (10:11)
[2021-06-11] MEDS: Levothyroxine Sodium 50 MCG TAB PO SCH ×2 (18:35→21:49)
[2021-06-11] MEDS: HYDROcodone/Acetaminophen 5/325 mg Tablet PO PRN (18:35)
[2021-06-11] MEDS: Atorvastatin Calcium 40 MG TAB PO SCH (20:55)
[2021-06-12 04:09] LABS: Hemoglobin 7.6 g/dL (12.0-15.5); Mean Corpuscular HGB CONC 30.3 g/dL (32.0-36.0); Mean Corpuscular Hemoglobin 31.1 pg (27.0-33.0); Mean Corpuscular Volume 102.9 fl (81.6-98.3); Mean Platelet Volume 11.3 fl (7.4-10.4); Platelet Count 139 10x3/uL (150-450); Red Blood Cell (RBC) Count 2.44 10x6/uL (3.90-5.03); White Blood Cell (WBC) Count 4.5 10x3/uL (3.5-10.5)
[2021-06-12 04:13] LABS: Anion Gap 10 mmol/L (10-20); BUN (Urea Nitrogen) 22 mg/dL (9.8-20.1); Calc. Creatinine Clearance 0 mL/min (70-130); Calcium 7.9 mg/dL (7.8-10.44); Carbon Dioxide 24 mmol/L (23-31); Chloride 118 mmol/L (98-107); Glucose 141 mg/dL (80-115); Potassium 3.8 mmol/L (3.5-5.1); Sodium 148 mmol/L (136-145)
[2021-06-12 05:03] LABS: MDiff Complete? YES
[2021-06-12 05:09] LABS: Band 16 % (5-11); Eosinophils 15 % (0-10); Lymphocytes 24 % (21-51); Monocytes 14 % (0-10); Neutrophil 29 % (42-75); Nucleated RBC 1 % (0); Reactive Lymphocytes 1 % (0-10)
[2021-06-12 05:10] LABS: Anisocytosis SLIGHT = 6-15 cells (100X) (0-5/hpf); Ovalocytes SLIGHT = 2-5 cells (100X) (0-1/hpf); Tear Drops SLIGHT = 2-5 cells (100X) (0-1/hpf)
[2021-06-12 05:11] LABS: Platelet Morphology Comment Appears Adequate
[2021-06-12] MEDS: Levothyroxine Sodium 50 MCG TAB PO SCH (06:01)
[2021-06-12] MEDS: Budesonide 0.5 MG/2 ML NEB NEB SCH ×2 (06:49→19:00)
[2021-06-12] MEDS: VANCOMYCIN 1.75 GM/350 ML BAG 1.75 GM in Premix Bag 1 BAG IVPB SCH (08:35)
[2021-06-12] MEDS: Polyethylene Glycol 3350 17 GM Packet PER TUBE SCH (08:35)
[2021-06-12] MEDS: Aspirin Chewable 81 MG TAB PO SCH (08:35)
[2021-06-12] MEDS: Enoxaparin Sodium 40 MG/0.4 ML SYRINGE SC SCH ×2 (08:35→20:30)
[2021-06-12] MEDS: Pantoprazole 40 MG GRANULES PACKET PER TUBE SCH (08:35)
[2021-06-12] MEDS: HYDROcodone/Acetaminophen 5/325 mg Tablet PO PRN (08:36)
[2021-06-12] MEDS ORDERED: Furosemide 100 MG/10 ML VIAL SLOW IVP SCH (15:30)
[2021-06-12] MEDS: Atorvastatin Calcium 40 MG TAB PO SCH (20:30)
[2021-06-13 06:34] LABS: Anion Gap 14 mmol/L (10-20); BUN (Urea Nitrogen) 21 mg/dL (9.8-20.1); Calc. Creatinine Clearance 171 mL/min (70-130); Carbon Dioxide 25 mmol/L (23-31); Chloride 113 mmol/L (98-107); Glucose 164 mg/dL (80-115); Potassium 3.6 mmol/L (3.5-5.1); Sodium 148 mmol/L (136-145)
[2021-06-13 06:38] LABS: Hemoglobin 8.1 g/dL (12.0-15.5); Mean Corpuscular HGB CONC 31.3 g/dL (32.0-36.0); Mean Corpuscular Hemoglobin 32.1 pg (27.0-33.0); Mean Corpuscular Volume 102.8 fl (81.6-98.3); Mean Platelet Volume 11.3 fl (7.4-10.4); RBC Distribution Width 22.9 % (11.5-14.5); Red Blood Cell (RBC) Count 2.52 10x6/uL (3.90-5.03); White Blood Cell (WBC) Count 5.4 10x3/uL (3.5-10.5)
[2021-06-13 06:44] LABS: Band 10 % (5-11); Lymphocytes 23 % (21-51); MDiff Complete? YES; Neutrophil 48 % (42-75); Platelet Count 163 10x3/uL (150-450); Reactive Lymphocytes 6 % (0-10)
[2021-06-13 06:45] LABS: Anisocytosis SLIGHT = 6-15 cells (100X) (0-5/hpf); Basophilic Stippling SLIGHT = 1-2 cells (100X) (None Seen); Eosinophils 6 % (0-10); Monocytes 7 % (0-10); Platelet Morphology Comment Appears Adequate
[2021-06-13] MEDS: Budesonide 0.5 MG/2 ML NEB NEB SCH ×2 (07:19→18:35)
[2021-06-13] MEDS: Levothyroxine Sodium 50 MCG TAB PO SCH (07:47)
[2021-06-13] MEDS: Aspirin Chewable 81 MG TAB PO SCH (08:10)
[2021-06-13] MEDS: Polyethylene Glycol 3350 17 GM Packet PER TUBE SCH (08:10)
[2021-06-13] MEDS: Enoxaparin Sodium 40 MG/0.4 ML SYRINGE SC SCH ×2 (08:10→21:50)
[2021-06-13] MEDS: Pantoprazole 40 MG GRANULES PACKET PER TUBE SCH (08:10)
[2021-06-13] MEDS: VANCOMYCIN 1.75 GM/350 ML BAG 1.75 GM in Premix Bag 1 BAG IVPB SCH (08:12)
[2021-06-13] MEDS ORDERED: Acetaminophen 325 MG TAB PO PRN (13:04)
[2021-06-13] MEDS: HYDROcodone/Acetaminophen 5/325 mg Tablet PO PRN (17:59)
[2021-06-13] MEDS: Atorvastatin Calcium 40 MG TAB PO SCH (21:51)
[2021-06-14 04:50] LABS: Anion Gap 12 mmol/L (10-20); BUN (Urea Nitrogen) 25 mg/dL (9.8-20.1); Calc. Creatinine Clearance 181 mL/min (70-130); Carbon Dioxide 28 mmol/L (23-31); Chloride 111 mmol/L (98-107); Glucose 137 mg/dL (80-115); Potassium 3.6 mmol/L (3.5-5.1); Sodium 147 mmol/L (136-145)
[2021-06-14 05:20] LABS: Hemoglobin 8.4 g/dL (12.0-15.5); Mean Corpuscular HGB CONC 30.8 g/dL (32.0-36.0); Mean Corpuscular Hemoglobin 31.8 pg (27.0-33.0); Mean Corpuscular Volume 103.4 fl (81.6-98.3); Mean Platelet Volume 11.4 fl (7.4-10.4); RBC Distribution Width 23.7 % (11.5-14.5); Red Blood Cell (RBC) Count 2.64 10x6/uL (3.90-5.03); White Blood Cell (WBC) Count 9.1 10x3/uL (3.5-10.5)
[2021-06-14] MEDS: Levothyroxine Sodium 50 MCG TAB PO SCH (06:18)
[2021-06-14] MEDS: Budesonide 0.5 MG/2 ML NEB NEB SCH ×2 (07:07→18:54)
[2021-06-14 07:16] LABS: MDiff Complete? YES; Platelet Count 171 10x3/uL (150-450)
[2021-06-14 08:00] LABS: Band 38 % (5-11); Eosinophils 1 % (0-10); Lymphocytes 14 % (21-51); Monocytes 6 % (0-10); Neutrophil 41 % (42-75); Nucleated RBC 1 % (0)
[2021-06-14 08:02] LABS: Dohle Bodies SLIGHT; Hypochromia SLIGHT = 6-15 cells (100X) (0-5/hpf); Macrocytosis SLIGHT = 6-15 cells (100X) (0-5/hpf); Ovalocytes SLIGHT = 2-5 cells (100X) (0-1/hpf); Platelet Morphology Comment Appears Adequate; Polychromasia SLIGHT = 2-3 cells (100X) (0-2/hpf)
[2021-06-14] MEDS: Enoxaparin Sodium 40 MG/0.4 ML SYRINGE SC SCH ×2 (08:23→21:58)
[2021-06-14] MEDS: Aspirin Chewable 81 MG TAB PO SCH (08:24)
[2021-06-14] MEDS: fentaNYL 50 mcg/hour Patch TD SCH (08:24)
[2021-06-14] MEDS: Pantoprazole 40 MG GRANULES PACKET PER TUBE SCH (08:24)
[2021-06-14] MEDS: Polyethylene Glycol 3350 17 GM Packet PER TUBE SCH (08:26)
[2021-06-14] MEDS: HYDROcodone/Acetaminophen 5/325 mg Tablet PO PRN ×2 (08:50→21:51)
[2021-06-14] MEDS: Atorvastatin Calcium 40 MG TAB PO SCH (21:58)
[2021-06-15 04:24] LABS: Anion Gap 15 mmol/L (10-20); BUN (Urea Nitrogen) 44 mg/dL (9.8-20.1); Calc. Creatinine Clearance 0 mL/min (70-130); Calcium 8.2 mg/dL (7.8-10.44); Carbon Dioxide 25 mmol/L (23-31); Chloride 111 mmol/L (98-107); Glucose 173 mg/dL (80-115); Sodium 147 mmol/L (136-145)
[2021-06-15 05:03] LABS: Hemoglobin 7.8 g/dL (12.0-15.5); Mean Corpuscular HGB CONC 30.5 g/dL (32.0-36.0); Mean Corpuscular Hemoglobin 31.6 pg (27.0-33.0); Mean Corpuscular Volume 103.6 fl (81.6-98.3); Red Blood Cell (RBC) Count 2.47 10x6/uL (3.90-5.03); White Blood Cell (WBC) Count 6.1 10x3/uL (3.5-10.5)
[2021-06-15 05:20] LABS: Platelet Count 155 10x3/uL (150-450)
[2021-06-15 05:21] LABS: MDiff Complete? YES; Mean Platelet Volume 10.6 fl (7.4-10.4)
[2021-06-15 05:30] LABS: Band 38 % (5-11); Lymphocytes 22 % (21-51); Monocytes 7 % (0-10); Neutrophil 33 % (42-75)
[2021-06-15 05:32] LABS: Anisocytosis SLIGHT = 6-15 cells (100X) (0-5/hpf); Basophilic Stippling SLIGHT = 1-2 cells (100X) (None Seen); Polychromasia SLIGHT = 2-3 cells (100X) (0-2/hpf)
[2021-06-15 05:33] LABS: Platelet Morphology Comment Appears Adequate
[2021-06-15] MEDS: Levothyroxine Sodium 50 MCG TAB PO SCH (06:03)
[2021-06-15] MEDS ORDERED: Glycopyrrolate 0.2 MG/ML 5 ML SYRINGE ONE (06:51)
[2021-06-15] MEDS: Budesonide 0.5 MG/2 ML NEB NEB SCH ×2 (07:07→17:40)
[2021-06-15] MEDS: Pantoprazole 40 MG GRANULES PACKET PER TUBE SCH (08:24)
[2021-06-15] MEDS: HYDROcodone/Acetaminophen 5/325 mg Tablet PO PRN (08:24)
[2021-06-15] MEDS: Aspirin Chewable 81 MG TAB PO SCH (08:24)
[2021-06-15] MEDS: Polyethylene Glycol 3350 17 GM Packet PER TUBE SCH (08:26)
[2021-06-15] MEDS: Enoxaparin Sodium 40 MG/0.4 ML SYRINGE SC SCH ×2 (08:26→20:00)
[2021-06-15] MEDS: Atorvastatin Calcium 40 MG TAB PO SCH (20:00)
[2021-06-16 04:04] LABS: Anion Gap 16 mmol/L (10-20); BUN (Urea Nitrogen) 48 mg/dL (9.8-20.1); Calc. Creatinine Clearance 0 mL/min (70-130); Calcium 8.5 mg/dL (7.8-10.44); Carbon Dioxide 26 mmol/L (23-31); Chloride 111 mmol/L (98-107); Glucose 183 mg/dL (80-115); Potassium 3.9 mmol/L (3.5-5.1); Sodium 149 mmol/L (136-145)
[2021-06-16] MEDS: Levothyroxine Sodium 50 MCG TAB PO SCH (05:38)
[2021-06-16 05:47] LABS: #Monocytes 0.4 10x3/uL (0.0-1.1); #Neutrophils 3.3 10x3/uL (1.5-8.4); %Basophils 0.2 % (0.0-2.0); %Eosinophils 0.5 % (0.0-6.0); %Lymphocytes 14.1 % (18.0-47.0); %Monocytes 8.7 % (0.0-10.0); Hemoglobin 7.8 g/dL (12.0-15.5); Mean Corpuscular HGB CONC 29.8 g/dL (32.0-36.0); Mean Corpuscular Hemoglobin 31.8 pg (27.0-33.0); Mean Corpuscular Volume 106.9 fl (81.6-98.3); Mean Platelet Volume 11.8 fl (7.4-10.4); Platelet Count 184 10x3/uL (150-450); RBC Distribution Width 23.8 % (11.5-14.5); Red Blood Cell (RBC) Count 2.45 10x6/uL (3.90-5.03); White Blood Cell (WBC) Count 4.4 10x3/uL (3.5-10.5)
[2021-06-16] MEDS: Budesonide 0.5 MG/2 ML NEB NEB SCH ×2 (06:52→19:08)
[2021-06-16] MEDS: Aspirin Chewable 81 MG TAB PO SCH (07:41)
[2021-06-16] MEDS: Enoxaparin Sodium 40 MG/0.4 ML SYRINGE SC SCH ×2 (07:41→21:36)
[2021-06-16] MEDS: Pantoprazole 40 MG GRANULES PACKET PER TUBE SCH (07:41)
[2021-06-16] MEDS: Polyethylene Glycol 3350 17 GM Packet PER TUBE SCH (08:21)
[2021-06-16] MEDS: cefTRIAXone\\ROCEPHIN 1 GM in Sodium Chloride 0.9% 100 ML IVPB SCH (13:20)
[2021-06-16] MEDS: HYDROcodone/Acetaminophen 5/325 mg Tablet PO PRN (13:47)
[2021-06-16] MEDS: Atorvastatin Calcium 40 MG TAB PO SCH (21:36)
[2021-06-16] MEDS ORDERED: Ziprasidone 20 MG VIAL IM SCH (23:15)
[2021-06-16] MEDS ORDERED: Sterile Water 10 ML ONE (23:20)
[2021-06-17] MEDS: Levothyroxine Sodium 50 MCG TAB PO SCH (05:15)
[2021-06-17 05:43] LABS: Anion Gap 16 mmol/L (10-20); BUN (Urea Nitrogen) 48 mg/dL (9.8-20.1); Calc. Creatinine Clearance 121 mL/min (70-130); Calcium 8.6 mg/dL (7.8-10.44); Carbon Dioxide 27 mmol/L (23-31); Chloride 111 mmol/L (98-107); Glucose 199 mg/dL (80-115); Potassium 3.5 mmol/L (3.5-5.1); Sodium 150 mmol/L (136-145)
[2021-06-17] MEDS: HumaLOG 300 UNITS/3 ML VIAL SC PRN (06:08)
[2021-06-17] MEDS: Budesonide 0.5 MG/2 ML NEB NEB SCH ×2 (07:00→18:50)
[2021-06-17 07:18] LABS: #Eosinphils 0.1 10x3/uL (0.0-0.5); #Monocytes 0.7 10x3/uL (0.0-1.1); #Neutrophils 4.3 10x3/uL (1.5-8.4); %Basophils 0.5 % (0.0-2.0); %Eosinophils 1.6 % (0.0-6.0); %Lymphocytes 17.7 % (18.0-47.0); %Monocytes 11.6 % (0.0-10.0); %Neutrophils 67.8 % (40.0-75.0); Hemoglobin 7.3 g/dL (12.0-15.5); Mean Corpuscular HGB CONC 28.5 g/dL (32.0-36.0); Mean Corpuscular Hemoglobin 31.2 pg (27.0-33.0); Mean Corpuscular Volume 109.4 fl (81.6-98.3); Mean Platelet Volume 12.6 fl (7.4-10.4); Platelet Count 191 10x3/uL (150-450); Red Blood Cell (RBC) Count 2.34 10x6/uL (3.90-5.03); White Blood Cell (WBC) Count 6.3 10x3/uL (3.5-10.5)
[2021-06-17 07:20] LABS: Hypochromia MODERATE=16-30 cells (100X) (0-5/hpf); Platelet Morphology Comment Appears Adequate
[2021-06-17] MEDS ORDERED: Dextrose 5% in Water 1,000 ML IV SCH (08:45)
[2021-06-17] MEDS: Aspirin Chewable 81 MG TAB PO SCH (09:38)
[2021-06-17] MEDS: fentaNYL 50 mcg/hour Patch TD SCH (09:38)
[2021-06-17] MEDS: Pantoprazole 40 MG GRANULES PACKET PER TUBE SCH ×2 (09:53→09:54)
[2021-06-17] MEDS: Enoxaparin Sodium 40 MG/0.4 ML SYRINGE SC SCH ×2 (09:57→20:20)
[2021-06-17] MEDS: Polyethylene Glycol 3350 17 GM Packet PER TUBE SCH (09:57)
[2021-06-17] MEDS: cefTRIAXone\\ROCEPHIN 1 GM in Sodium Chloride 0.9% 100 ML IVPB SCH (11:35)
[2021-06-17] MEDS: HYDROcodone/Acetaminophen 5/325 mg Tablet PO PRN (14:16)
[2021-06-17] MEDS: Atorvastatin Calcium 40 MG TAB PO SCH (20:20)
[2021-06-18] MEDS ORDERED: Ziprasidone 20 MG VIAL IM SCH (00:15)
[2021-06-18] MEDS ORDERED: Sterile Water 10 ML ONE (00:49)
[2021-06-18 03:54] LABS: Hemoglobin 7.5 g/dL (12.0-15.5); Mean Corpuscular HGB CONC 29.2 g/dL (32.0-36.0); Mean Corpuscular Hemoglobin 31.6 pg (27.0-33.0); Mean Corpuscular Volume 108.4 fl (81.6-98.3); Mean Platelet Volume 12.3 fl (7.4-10.4); Platelet Count 221 10x3/uL (150-450); RBC Distribution Width 22.9 % (11.5-14.5); Red Blood Cell (RBC) Count 2.37 10x6/uL (3.90-5.03); White Blood Cell (WBC) Count 6.3 10x3/uL (3.5-10.5)
[2021-06-18 04:06] LABS: Anion Gap 12 mmol/L (10-20); BUN (Urea Nitrogen) 43 mg/dL (9.8-20.1); Calc. Creatinine Clearance 125 mL/min (70-130); Calcium 8.4 mg/dL (7.8-10.44); Carbon Dioxide 31 mmol/L (23-31); Chloride 107 mmol/L (98-107); Glucose 169 mg/dL (80-115); Potassium 3.3 mmol/L (3.5-5.1); Sodium 147 mmol/L (136-145)
[2021-06-18 04:25] LABS: MDiff Complete? YES; Manual Diff?? YES
[2021-06-18 04:35] LABS: Band 6 % (5-11); Eosinophils 4 % (0-10); Lymphocytes 15 % (21-51); Monocytes 14 % (0-10); Neutrophil 59 % (42-75); Reactive Lymphocytes 2 % (0-10)
[2021-06-18 04:36] LABS: Platelet Morphology Comment Appears Adequate
[2021-06-18 04:37] LABS: Anisocytosis MODERATE=16-30 cells (100X) (0-5/hpf); Hypochromia SLIGHT = 6-15 cells (100X) (0-5/hpf); Macrocytosis SLIGHT = 6-15 cells (100X) (0-5/hpf); Microcytosis SLIGHT = 6-15 cells (100X) (0-5/hpf); Polychromasia SLIGHT = 2-3 cells (100X) (0-2/hpf); Stomatocytes SLIGHT = 2-5 cells (100X) (0-1/hpf); Target Cells SLIGHT = 2-5 cells (100X) (0-1/hpf)
[2021-06-18] MEDS: Levothyroxine Sodium 50 MCG TAB PO SCH (05:24)
[2021-06-18] MEDS ORDERED: Potassium Chloride 20 MEQ TAB PER TUBE SCH (07:15)
[2021-06-18] MEDS: Budesonide 0.5 MG/2 ML NEB NEB SCH ×2 (07:25→19:35)
[2021-06-18] MEDS: Polyethylene Glycol 3350 17 GM Packet PER TUBE SCH (08:10)
[2021-06-18] MEDS: Enoxaparin Sodium 40 MG/0.4 ML SYRINGE SC SCH ×2 (08:11→19:58)
[2021-06-18] MEDS: Aspirin Chewable 81 MG TAB PO SCH (08:11)
[2021-06-18] MEDS: cefTRIAXone\\ROCEPHIN 1 GM in Sodium Chloride 0.9% 100 ML IVPB SCH (11:24)
[2021-06-18 11:25] LABS: ALT (SGPT) 116 U/L (8-55); AST (SGOT) 93 U/L (5-34); Albumin 2.9 g/dL (3.4-4.8); Alkaline Phosphatase 90 U/L (40-110); Bilirubin, Direct 0.4 mg/dL (0.1-0.3); Bilirubin, Total 0.6 mg/dL (0.2-1.2); Protein, Total 6.7 g/dL (5.8-8.1)
[2021-06-18] MEDS: Atorvastatin Calcium 40 MG TAB PO SCH (19:58)
[2021-06-19 03:38] LABS: Anion Gap 12 mmol/L (10-20); BUN (Urea Nitrogen) 37 mg/dL (9.8-20.1); Calc. Creatinine Clearance 126 mL/min (70-130); Calcium 8.4 mg/dL (7.8-10.44); Carbon Dioxide 31 mmol/L (23-31); Chloride 106 mmol/L (98-107); Glucose 179 mg/dL (80-115); Sodium 145 mmol/L (136-145)
[2021-06-19 03:40] LABS: Hemoglobin 7.4 g/dL (12.0-15.5); Mean Corpuscular HGB CONC 29.4 g/dL (32.0-36.0); Mean Corpuscular Hemoglobin 31.5 pg (27.0-33.0); Mean Corpuscular Volume 107.2 fl (81.6-98.3); Platelet Count 266 10x3/uL (150-450); RBC Distribution Width 22.3 % (11.5-14.5); Red Blood Cell (RBC) Count 2.35 10x6/uL (3.90-5.03); White Blood Cell (WBC) Count 6.8 10x3/uL (3.5-10.5)
[2021-06-19 03:46] LABS: MDiff Complete? YES; Manual Diff?? YES
[2021-06-19 05:16] LABS: Band 5 % (5-11); Eosinophils 3 % (0-10); Lymphocytes 31 % (21-51); Monocytes 7 % (0-10); Neutrophil 50 % (42-75); Reactive Lymphocytes 4 % (0-10)
[2021-06-19 05:17] LABS: Platelet Morphology Comment Appears Adequate
[2021-06-19 05:18] LABS: Anisocytosis MODERATE=16-30 cells (100X) (0-5/hpf)
[2021-06-19 05:19] LABS: Hypochromia SLIGHT = 6-15 cells (100X) (0-5/hpf); Large Platelets SLIGHT; Macrocytosis SLIGHT = 6-15 cells (100X) (0-5/hpf); Microcytosis SLIGHT = 6-15 cells (100X) (0-5/hpf); Polychromasia SLIGHT = 2-3 cells (100X) (0-2/hpf); Schistocytes SLIGHT = 2-5 cells (100X) (0-1/hpf); Stomatocytes SLIGHT = 2-5 cells (100X) (0-1/hpf)
[2021-06-19] MEDS: Levothyroxine Sodium 50 MCG TAB PO SCH (05:52)
[2021-06-19] MEDS: Budesonide 0.5 MG/2 ML NEB NEB SCH ×2 (07:08→18:53)
[2021-06-19] MEDS: Enoxaparin Sodium 40 MG/0.4 ML SYRINGE SC SCH ×2 (07:30→21:23)
[2021-06-19] MEDS: Aspirin Chewable 81 MG TAB PO SCH (07:31)
[2021-06-19] MEDS: Folic Acid/Vit B Comp W-C PER TUBE SCH (07:31)
[2021-06-19] MEDS: Polyethylene Glycol 3350 17 GM Packet PER TUBE SCH (07:31)
[2021-06-19] MEDS: Pantoprazole 40 MG GRANULES PACKET PER TUBE SCH (07:31)
[2021-06-19] MEDS: Furosemide 40 MG/4 ML VIAL SLOW IVP SCH (09:13)
[2021-06-19 09:44] LABS: Prothrombin Time 11.4 sec (9.5-12.1)
[2021-06-19] MEDS: Doxycycline 100 MG CAP PO SCH ×2 (09:56→21:25)
[2021-06-19] MEDS: cefTRIAXone\\ROCEPHIN 1 GM in Sodium Chloride 0.9% 100 ML IVPB SCH (13:18)
[2021-06-19] MEDS: Atorvastatin Calcium 40 MG TAB PO SCH (21:23)
[2021-06-20 03:48] LABS: Hemoglobin 7.2 g/dL (12.0-15.5); Mean Corpuscular HGB CONC 28.9 g/dL (32.0-36.0); Mean Corpuscular Hemoglobin 31.3 pg (27.0-33.0); Mean Corpuscular Volume 108.3 fl (81.6-98.3); Mean Platelet Volume 12.1 fl (7.4-10.4); Platelet Count 301 10x3/uL (150-450); RBC Distribution Width 21.9 % (11.5-14.5); White Blood Cell (WBC) Count 8.4 10x3/uL (3.5-10.5)
[2021-06-20 03:49] LABS: #Eosinphils 0.1 10x3/uL (0.0-0.5); #Monocytes 1.1 10x3/uL (0.0-1.1); #Neutrophils 5.8 10x3/uL (1.5-8.4); %Basophils 0.2 % (0.0-2.0); %Eosinophils 1.7 % (0.0-6.0); %Lymphocytes 13.1 % (18.0-47.0); %Monocytes 13.5 % (0.0-10.0); %Neutrophils 69.4 % (40.0-75.0)
[2021-06-20 04:05] LABS: Anion Gap 15 mmol/L (10-20); BUN (Urea Nitrogen) 35 mg/dL (9.8-20.1); Calc. Creatinine Clearance 161 mL/min (70-130); Calcium 8.5 mg/dL (7.8-10.44); Carbon Dioxide 31 mmol/L (23-31); Chloride 106 mmol/L (98-107); Glucose 168 mg/dL (80-115); Potassium 3.9 mmol/L (3.5-5.1); Sodium 148 mmol/L (136-145)
[2021-06-20 04:08] LABS: Band 6 % (5-11); Eosinophils 2 % (0-10); Lymphocytes 10 % (21-51); Monocytes 8 % (0-10); Neutrophil 66 % (42-75); Nucleated RBC 1 % (0); Reactive Lymphocytes 6 % (0-10)
[2021-06-20 04:10] LABS: Anisocytosis MODERATE=16-30 cells (100X) (0-5/hpf); Basophilic Stippling SLIGHT = 1-2 cells (100X) (None Seen); Elliptocytes SLIGHT = 2-5 cells (100X) (0-1/hpf); Helmet Cells SLIGHT = 2-5 cells (100X) (0-1/hpf); Hypochromia SLIGHT = 6-15 cells (100X) (0-5/hpf); Macrocytosis SLIGHT = 6-15 cells (100X) (0-5/hpf); Microcytosis SLIGHT = 6-15 cells (100X) (0-5/hpf); Platelet Morphology Comment Appears Adequate; Target Cells SLIGHT = 2-5 cells (100X) (0-1/hpf)
[2021-06-20] MEDS: Levothyroxine Sodium 50 MCG TAB PO SCH (05:27)
[2021-06-20] MEDS: Budesonide 0.5 MG/2 ML NEB NEB SCH ×2 (06:55→18:34)
[2021-06-20] MEDS: Furosemide 40 MG/4 ML VIAL SLOW IVP SCH (08:35)
[2021-06-20] MEDS: Enoxaparin Sodium 40 MG/0.4 ML SYRINGE SC SCH ×2 (08:35→21:08)
[2021-06-20] MEDS: Pantoprazole 40 MG GRANULES PACKET PER TUBE SCH (08:35)
[2021-06-20] MEDS: fentaNYL 50 mcg/hour Patch TD SCH (08:35)
[2021-06-20] MEDS: Polyethylene Glycol 3350 17 GM Packet PER TUBE SCH (08:35)
[2021-06-20] MEDS: Aspirin Chewable 81 MG TAB PO SCH (08:36)
[2021-06-20] MEDS: Folic Acid/Vit B Comp W-C PER TUBE SCH (08:36)
[2021-06-20] MEDS: Doxycycline 100 MG CAP PO SCH ×2 (08:36→21:13)
[2021-06-20] MEDS: cefTRIAXone\\ROCEPHIN 1 GM in Sodium Chloride 0.9% 100 ML IVPB SCH (12:59)
[2021-06-20] MEDS: HYDROcodone/Acetaminophen 5/325 mg Tablet PO PRN (21:08)
[2021-06-20] MEDS: Atorvastatin Calcium 40 MG TAB PO SCH (21:13)
[2021-06-21 03:49] LABS: #Basophils 0.1 10x3/uL (0.0-0.2); #Eosinphils 0.2 10x3/uL (0.0-0.5); #Monocytes 1.2 10x3/uL (0.0-1.1); #Neutrophils 8.6 10x3/uL (1.5-8.4); %Basophils 0.6 % (0.0-2.0); %Eosinophils 1.7 % (0.0-6.0); %Lymphocytes 13.2 % (18.0-47.0); %Monocytes 9.9 % (0.0-10.0); %Neutrophils 69.8 % (40.0-75.0); Hemoglobin 7.7 g/dL (12.0-15.5); Mean Corpuscular HGB CONC 29.8 g/dL (32.0-36.0); Mean Corpuscular Hemoglobin 31.2 pg (27.0-33.0); Mean Corpuscular Volume 104.5 fl (81.6-98.3); Mean Platelet Volume 12.6 fl (7.4-10.4); Platelet Count 356 10x3/uL (150-450); RBC Distribution Width 21.9 % (11.5-14.5); Red Blood Cell (RBC) Count 2.47 10x6/uL (3.90-5.03); White Blood Cell (WBC) Count 12.2 10x3/uL (3.5-10.5)
[2021-06-21 03:52] LABS: Anion Gap 16 mmol/L (10-20); BUN (Urea Nitrogen) 37 mg/dL (9.8-20.1); Calc. Creatinine Clearance 139 mL/min (70-130); Carbon Dioxide 31 mmol/L (23-31); Chloride 104 mmol/L (98-107); Glucose 192 mg/dL (80-115); Potassium 4.1 mmol/L (3.5-5.1); Sodium 147 mmol/L (136-145)
[2021-06-21] MEDS: Budesonide 0.5 MG/2 ML NEB NEB SCH ×2 (07:30→19:06)
[2021-06-21] MEDS: Levothyroxine Sodium 50 MCG TAB PO SCH (07:31)
[2021-06-21] MEDS: Folic Acid/Vit B Comp W-C PER TUBE SCH (08:05)
[2021-06-21] MEDS: Polyethylene Glycol 3350 17 GM Packet PER TUBE SCH (08:05)
[2021-06-21] MEDS: Furosemide 40 MG/4 ML VIAL SLOW IVP SCH (08:05)
[2021-06-21] MEDS: Aspirin Chewable 81 MG TAB PO SCH (08:05)
[2021-06-21] MEDS: Enoxaparin Sodium 40 MG/0.4 ML SYRINGE SC SCH ×2 (08:05→22:10)
[2021-06-21] MEDS: Doxycycline 100 MG CAP PO SCH ×2 (08:05→22:08)
[2021-06-21] MEDS: Pantoprazole 40 MG GRANULES PACKET PER TUBE SCH (08:05)
[2021-06-21] MEDS ORDERED: HYDROmorphone 0.5 MG/0.5 ML SYRINGE SLOW IVP SCH (11:00)
[2021-06-21] MEDS: cefTRIAXone\\ROCEPHIN 1 GM in Sodium Chloride 0.9% 100 ML IVPB SCH (11:45)
[2021-06-21] MEDS: Atorvastatin Calcium 40 MG TAB PO SCH (22:08)
[2021-06-22 04:05] LABS: #Basophils 0.1 10x3/uL (0.0-0.2); #Eosinphils 0.1 10x3/uL (0.0-0.5); #Neutrophils 6.1 10x3/uL (1.5-8.4); %Basophils 0.5 % (0.0-2.0); %Eosinophils 1.5 % (0.0-6.0); %Lymphocytes 17.8 % (18.0-47.0); %Monocytes 10.6 % (0.0-10.0); %Neutrophils 65.1 % (40.0-75.0); Hemoglobin 7.3 g/dL (12.0-15.5); Mean Corpuscular HGB CONC 30.7 g/dL (32.0-36.0); Mean Corpuscular Hemoglobin 31.2 pg (27.0-33.0); Mean Corpuscular Volume 101.7 fl (81.6-98.3); Platelet Count 418 10x3/uL (150-450); RBC Distribution Width 21.2 % (11.5-14.5); Red Blood Cell (RBC) Count 2.34 10x6/uL (3.90-5.03); White Blood Cell (WBC) Count 9.3 10x3/uL (3.5-10.5)
[2021-06-22 04:13] LABS: Anion Gap 14 mmol/L (10-20); BUN (Urea Nitrogen) 36 mg/dL (9.8-20.1); Calc. Creatinine Clearance 0 mL/min (70-130); Calcium 8.4 mg/dL (7.8-10.44); Carbon Dioxide 32 mmol/L (23-31); Chloride 101 mmol/L (98-107); Glucose 165 mg/dL (80-115); Potassium 3.2 mmol/L (3.5-5.1); Sodium 144 mmol/L (136-145)
[2021-06-22] MEDS: Levothyroxine Sodium 50 MCG TAB PO SCH (06:34)
[2021-06-22] MEDS: Budesonide 0.5 MG/2 ML NEB NEB SCH (06:46)
[2021-06-22 07:54] VITALS: BMI 48.0
[2021-06-22 07:57] VITALS: TEMP 98.3
[2021-06-22] MEDS: Furosemide 40 MG/4 ML VIAL SLOW IVP SCH (09:38)
[2021-06-22] MEDS: Polyethylene Glycol 3350 17 GM Packet PER TUBE SCH (09:38)
[2021-06-22] MEDS: Pantoprazole 40 MG GRANULES PACKET PER TUBE SCH (09:39)
[2021-06-22] MEDS: Enoxaparin Sodium 40 MG/0.4 ML SYRINGE SC SCH (09:39)
[2021-06-22] MEDS: Aspirin Chewable 81 MG TAB PO SCH (09:39)
[2021-06-22] MEDS: Doxycycline 100 MG CAP PO SCH (09:39)
[2021-06-22 11:24] VITALS: BP 97/67
[2021-06-22] MEDS ORDERED: Potassium Chloride 20 MEQ TAB PO SCH (12:00)
[2021-06-22] MEDS: Folic Acid/Vit B Comp W-C PER TUBE SCH (12:26)
[2021-06-22] MEDS: cefTRIAXone\\ROCEPHIN 1 GM in Sodium Chloride 0.9% 100 ML IVPB SCH (12:52)
[2021-06-23 17:14] LABS: Methylmalonic Acid 473 nmol/L (0-378)
== END 2021-06-22 13:34 | disposition short-term general hospital (02) | DRG 4 ==
LOC: CSHERS 22:57 → CSHIMCU 23:51 → UNDOADMIN 05-19 05:02
PROVIDERS: ADMIT Family Medicine; ATTEND Internal Medicine
PROC: 5A1955Z Respiratory Ventilation, Greater than 96 Consecutive Hours (ICD-10-PCS; 2021-05-18)
PROC: 0BH18EZ Insertion of Endotracheal Airway into Trachea, Via Natural or Artificial Opening Endoscopic (ICD-10-PCS; 2021-05-18)
PROC: 3E033XZ Introduction of Vasopressor into Peripheral Vein, Percutaneous Approach (ICD-10-PCS; 2021-05-20)
PROC: 02HV33Z Insertion of Infusion Device into Superior Vena Cava, Percutaneous Approach (ICD-10-PCS; 2021-05-21)
PROC: B548ZZA Ultrasonography of Superior Vena Cava, Guidance (ICD-10-PCS; 2021-05-21)
PROC: 0B113F4 Bypass Trachea to Cutaneous with Tracheostomy Device, Percutaneous Approach (ICD-10-PCS; principal; 2021-06-05)
PROC: 0DH63UZ Insertion of Feeding Device into Stomach, Percutaneous Approach (ICD-10-PCS; 2021-06-05)
DX: A41.89 Other specified sepsis (principal); U07.1 COVID-19; J12.82 Pneumonia due to coronavirus disease 2019; J80 Acute respiratory distress syndrome; R65.21 Severe sepsis with septic shock; J15.212 Pneumonia due to Methicillin resistant Staphylococcus aureus; G93.41 Metabolic encephalopathy; J44.0 Chronic obstructive pulmonary disease with (acute) lower respiratory infection; I13.0 Hypertensive heart and chronic kidney disease with heart failure and stage 1 through stage 4 chronic kidney disease, or unspecified chronic kidney disease; I50.32 Chronic diastolic (congestive) heart failure; Z68.42 Body mass index [BMI] 45.0-49.9, adult; N17.9 Acute kidney failure, unspecified; E87.0 Hyperosmolality and hypernatremia; G72.81 Critical illness myopathy; L03.113 Cellulitis of right upper limb; E11.40 Type 2 diabetes mellitus with diabetic neuropathy, unspecified; F17.210 Nicotine dependence, cigarettes, uncomplicated; E03.9 Hypothyroidism, unspecified; E78.5 Hyperlipidemia, unspecified; R91.1 Solitary pulmonary nodule; E11.22 Type 2 diabetes mellitus with diabetic chronic kidney disease; E11.65 Type 2 diabetes mellitus with hyperglycemia; E66.01 Morbid (severe) obesity due to excess calories; R59.1 Generalized enlarged lymph nodes; N18.31 Chronic kidney disease, stage 3a; D63.1 Anemia in chronic kidney disease; E87.5 Hyperkalemia; G72.9 Myopathy, unspecified; Z79.82 Long term (current) use of aspirin; Z79.899 Other long term (current) drug therapy; Z99.81 Dependence on supplemental oxygen; Z78.1 Physical restraint status
CPT/HCPCS: 31500; 36415; 36416; 36600; 51702; 71045; 80048; 80053; 80076; 80202; 82607; 82746; 82805; 83090; 83540; 83550; 83605; 83735; 83880; 83921; 84100; 84145; 84443; 84484; 85025; 85046; 85060; 85379; 85610; 85652; 86140; 87040; 87070; 87077; 87186; 87205; 93005; 93010; 93306; 94002; 94003; 94640; 94667; 94668; 94669; 94760; 94799; 96365; 96367; 96375; B4087; C9113; J0171; J0360; J0456; J0696; J1100; J1170; J1650; J1815; J1940; J2060; J2212; J2250; J2270; J2405; J2543; J2704; J2920; J2930; J3010; J3262; J3370; J3486; J3490; J7050; J7070; J7120; J7611; J7620; J7626; S0020; U0002